=== PATIENT | female | born 2000 | race Caucasian/White ===

== ENCOUNTER 2018-06-12 09:00 | Emergency (ER) | payer BC, OTHER ==
[2018-06-12 09:06] VITALS: RESP 18
[2018-06-12] MEDS ORDERED: SODIUM CHLORIDE 0.9% 1,000 ML IV STA (09:11)
--- NOTE | 2018-06-12 09:33 | ED ---
Abdominal Pain HPI - General Chief Complaint: Abdominal Pain Stated Complaint: POSS DEHYDRATION, RT FLANK PAIN Time Seen by Provider: 06/12/18 09:10 Source: patient, RN notes reviewed Mode of arrival: ambulatory Limitations: no limitations - History of Present Illness Initial Comments: 17-year-old female presents emergency Department with chief complaint of right- sided abdominal pain 2 days. Patient states that it's in her right lower quadrant and occasionally radiates to her back. Patient states nothing makes the pain feel better or worse. She has had some nausea no vomiting no diarrhea no constipation. Patient denies any known fever or chills. Patient seen by his PCP today sent emergency department for evaluation of appendicitis. Patient denies any chance . She's had no prior ovarian issues. - Related Data Allergies Allergy/AdvReac Type Severity Reaction Status Date / Time No Known Allergies Allergy Verified 06/12/18 09:02 Review of Systems ROS Statement: Those systems with pertinent positive or pertinent negative responses have been documented in the HPI. ROS Other: All systems not noted in ROS Statement are negative. Past Medical History Past Medical History: No Reported History History of Any Multi-Drug Resistant Organisms: None Reported Additional Past Surgical History / Comment(s): oral surgery Past Psychological History: No Psychological Hx Reported Smoking Status: Never smoker Past Alcohol Use History: None Reported Past Drug Use History: None Reported General Exam Limitations: no limitations General appearance: alert, in no apparent distress Head exam: Present: atraumatic, normocephalic, normal inspection Neck exam: Present: normal inspection. Absent: tenderness, meningismus, lymphadenopathy Respiratory exam: Present: normal lung sounds bilaterally. Absent: respiratory distress, wheezes, rales, rhonchi, stridor Cardiovascular Exam: Present: regular rate, normal rhythm, normal heart sounds. Absent: systolic murmur, diastolic murmur, rubs, gallop, clicks GI/Abdominal exam: Present: soft, tenderness (Moderate right lower quadrant tenderness), normal bowel sounds. Absent: distended, guarding, rebound, rigid Back exam: Absent: CVA tenderness (R), CVA tenderness (L) Skin exam: Present: warm, dry, intact, normal color. Absent: rash Course Vital Signs 06/12/18 06/12/18 09:02 11:38 Temperature 97.7 F 98.3 F Pulse Rate 86 78 Respiratory 18 18 Rate Blood Pressure 139/87 143/81 O2 Sat by Pulse 100 96 Oximetry Medical Decision Making - Medical Decision Making 17-year-old female presents emergency department for right-sided abdominal pain. Patient's symptoms have been present for [address], lab work urinalysis which is unremarkable other than the left ovarian cysts and left -sided stone in the kidney. Patient will be discharged with close follow-up return parameters were discussed. - Lab Data Result diagrams: 06/12/18 09:35 06/12/18 09:35 Lab Results 06/12/18 06/12/18 06/12/18 Range/Units 09:35 09:35 09:40 WBC 10.4 (4.0-11.0) k/uL RBC 4.35 (3.80-5.40) m/uL Hgb 13.7 (11.4-16.0) gm/dL Hct 38.3 (34.0-46.0) % MCV 88.1 (80.0-100.0) fL MCH 31.5 (25.0-35.0) pg MCHC 35.8 (31.0-37.0) g/dL RDW 12.4 (11.5-15.5) % Plt Count 278 (150-450) k/uL Neutrophils % 71 % Lymphocytes % 22 % Monocytes % 4 % Eosinophils % 2 % Basophils % 0 % Neutrophils # 7.4 (1.3-7.7) k/uL Lymphocytes # 2.3 (1.0-4.8) k/uL Monocytes # 0.4 (0-1.0) k/uL Eosinophils # 0.2 (0-0.7) k/uL Basophils # 0.0 (0-0.2) k/uL Sodium 139 (137-145) mmol/L Potassium 4.2 (3.5-5.1) mmol/L Chloride 105 (98-107) mmol/L Carbon Dioxide 24 (22-30) mmol/L Anion Gap 10 mmol/L BUN 9 (7-17) mg/dL Creatinine 0.79 (0.52-1.04) mg/dL Est GFR (CKD-EPI)AfAm >90 (>60 ml/min/1.73 sqM) Est GFR (CKD-EPI)NonAf >90 (>60 ml/min/1.73 sqM) Glucose 91 (74-99) mg/dL Calcium 9.6 (8.4-10.2) mg/dL Total Bilirubin 0.8 (0.2-1.3) mg/dL AST 15 (14-36) U/L ALT 21 (9-52) U/L Alkaline Phosphatase 90 (38-126) U/L Total Protein 7.5 (6.3-8.2) g/dL Albumin 4.1 (3.5-5.0) g/dL Amylase 50 (30-110) U/L Lipase 34 (23-300) U/L Urine Color Urine Appearance (Clear) Urine pH (5.0-8.0) Ur Specific [place] (1.001-1.035) Urine Protein (Negative) Urine Glucose (UA) (Negative) Urine Ketones (Negative) Urine Blood (Negative) Urine Nitrite (Negative) Urine Bilirubin (Negative) Urine Urobilinogen (<2.0) mg/dL Ur Leukocyte Esterase (Negative) Urine HCG, Qual Not Detected (Not Detectd) 06/12/18 Range/Units 09:40 WBC (4.0-11.0) k/uL RBC (3.80-5.40) m/uL Hgb (11.4-16.0) gm/dL Hct (34.0-46.0) % MCV (80.0-100.0) fL MCH (25.0-35.0) pg MCHC (31.0-37.0) g/dL RDW (11.5-15.5) % Plt Count (150-450) k/uL Neutrophils % % Lymphocytes % % Monocytes % % Eosinophils % % Basophils % % Neutrophils # (1.3-7.7) k/uL Lymphocytes # (1.0-4.8) k/uL Monocytes # (0-1.0) k/uL Eosinophils # (0-0.7) k/uL Basophils # (0-0.2) k/uL Sodium (137-145) mmol/L Potassium (3.5-5.1) mmol/L Chloride (98-107) mmol/L Carbon Dioxide (22-30) mmol/L Anion Gap mmol/L BUN (7-17) mg/dL Creatinine (0.52-1.04) mg/dL Est GFR (CKD-EPI)AfAm (>60 ml/min/1.73 sqM) Est GFR (CKD-EPI)NonAf (>60 ml/min/1.73 sqM) Glucose (74-99) mg/dL Calcium (8.4-10.2) mg/dL Total Bilirubin (0.2-1.3) mg/dL AST (14-36) U/L ALT (9-52) U/L Alkaline Phosphatase (38-126) U/L Total Protein (6.3-8.2) g/dL Albumin (3.5-5.0) g/dL Amylase (30-110) U/L Lipase (23-300) U/L Urine Color Light Yellow Urine Appearance Clear (Clear) Urine pH 6.0 (5.0-8.0) Ur Specific [place] 1.004 (1.001-1.035) Urine Protein Negative (Negative) Urine Glucose (UA) Negative (Negative) Urine Ketones 1+ H (Negative) Urine Blood Negative (Negative) Urine Nitrite Negative (Negative) Urine Bilirubin Negative (Negative) Urine Urobilinogen <2.0 (<2.0) mg/dL Ur Leukocyte Esterase Negative (Negative) Urine HCG, Qual (Not Detectd) Disposition Clinical Impression: Abdominal pain Disposition: HOME SELF-CARE Condition: Stable Instructions: Abdominal Pain (ED) Additional Instructions: Please return to the Emergency Department if symptoms worsen or any other concerns. Is patient prescribed a controlled substance at d/c from ED?: No Referrals: Lawrence Parekh MD [Primary Care Provider] - 1-2 days Time of Disposition: 11:59
[2018-06-12 10:16] LABS: Basophils % (A) 0 %; Eosinophils # (A) 0.2 k/uL (0-0.7); Eosinophils % (A) 2 %; HCT 38.3 % (34.0-46.0); HGB 13.7 gm/dL (11.4-16.0); Lymphocytes # (A) 2.3 k/uL (1.0-4.8); Lymphocytes % (A) 22 %; MCH 31.5 pg (25.0-35.0); MCHC 35.8 g/dL (31.0-37.0); MCV 88.1 fL (80.0-100.0); Mean Platelet Volume 6.9; Monocytes # (A) 0.4 k/uL (0-1.0); Monocytes % (A) 4 %; Neutrophils # (A) 7.4 k/uL (1.3-7.7); Neutrophils % (A) 71 %; Platelet Count 278 k/uL (150-450); RBC 4.35 m/uL (3.80-5.40); RDW 12.4 % (11.5-15.5); WBC 10.4 k/uL (4.0-11.0)
[2018-06-12 10:21] LABS: Appearance,Urine Clear (Clear); Bilirubin,Urine Negative (Negative); Blood,Urine Negative (Negative); Color,Urine Light Yellow; Glucose,Urine (UA) Negative (Negative); Ketones,Urine 1+ (Negative); Leukocyte Esterase,Urine Negative (Negative); Nitrite,Urine Negative (Negative); Protein,Urine Negative (Negative); Specific Gravity,Urine 1.004 (1.001-1.035); Urobilinogen,Urine <2.0 mg/dL (<2.0)
[2018-06-12 10:34] LABS: ALT 21 U/L (9-52); AST 15 U/L (14-36); Albumin 4.1 g/dL (3.5-5.0); Alkaline Phosphatase 90 U/L (38-126); Amylase 50 U/L (30-110); Anion Gap 10 mmol/L; Blood Urea Nitrogen 9 mg/dL (7-17); Calcium 9.6 mg/dL (8.4-10.2); Carbon Dioxide 24 mmol/L (22-30); Chloride 105 mmol/L (98-107); Glucose 91 mg/dL (74-99); Lipase 34 U/L (23-300); Potassium 4.2 mmol/L (3.5-5.1); Sodium 139 mmol/L (137-145); Total Bilirubin 0.8 mg/dL (0.2-1.3); Total Protein 7.5 g/dL (6.3-8.2)
[2018-06-12 11:40] VITALS: BP 143/81; PULSE 78; TEMP 98.3
--- NOTE | 2018-06-12 11:52 | CT ---
EXAMINATION TYPE: CT abdomen pelvis w con DATE OF EXAM: 06/12/2018 HISTORY: Right flank pain CT DLP: 997.9mGycm Automated Exposure Control for Dose Reduction was Utilized. CONTRAST: CT scan of the abdomen and pelvis is performed with IV Contrast, patient injected with 100 mL of Isov ue 300. COMPARISON: 10/28/2011 FINDINGS: LUNG BASES: No significant abnormality is appreciated. LIVER/GB: Wedge-shaped area of hypoattenuation along the fissure for the falciform ligament most comm only relates to focal fatty infiltration. Remainder of the liver enhances homogeneously. No cholelith iasis. PANCREAS: No significant abnormality is seen. SPLEEN: No significant abnormality is seen. ADRENALS: No significant abnormality is seen. KIDNEYS: There is a punctate nonobstructing left lower pole 1 to 2 mm renal calculus seen on coronal image 56. Kidneys enhance and excrete symmetrically. No hydronephrosis. BOWEL: Appendix is unremarkable along dating towards midline on series 201 image 54 overlying the rig ht so as and right ureter. No periappendiceal fat stranding changes are seen. There is a mild amount retained colonic stool. Clustered nonenlarged small bowel loops are seen within the left upper quadra nt. UTERUS/ADNEXA: Left ovarian cyst measures 3.5 cm and is compatible with simple fluid attenuation. LYMPH NODES: No greater than 1cm abdominal or pelvic lymph nodes are appreciated. OSSEOUS STRUCTURES: Minimal sacroiliac joint sclerosis is slightly asymmetric (right greater than lef t). This is similar to the prior 2012. IMPRESSION: 1. No significant acute finding is seen to account for patient's clinical symptoms. CT evidence of ac [place] appendicitis, pyelonephritis, hydronephrosis, or bowel obstruction. 2. 3.5 cm left ovarian cyst. 3. Nonobstructing 1 to 2 mm left lower pole renal calculus. 4. Minimal asymmetric sacroiliac joint sclerosis similar to 2012. 5. Probable focal fatty infiltration along the fissure for the falciform ligament.
== END 2018-06-12 12:05 | disposition home or self-care (01) ==
LOC: EC 09:00
DX: R10.31 Right lower quadrant pain (principal); N83.202 Unspecified ovarian cyst, left side; N20.0 Calculus of kidney; M54.5 Low back pain; R11.0 Nausea
CPT/HCPCS: 36415; 80053; 82150; 83690; 85025; 81003; 81025; 74177; 99284; 96360; Q9967

== ENCOUNTER 2019-03-03 03:18 | Emergency (ER) | payer BC ==
[2019-03-03 03:22] VITALS: RESP 18
[2019-03-03] MEDS ORDERED: SODIUM CHLORIDE 0.9% 1,000 ML IV STA (03:37)
[2019-03-03 04:02] LABS: Basophils % (A) 0 %; Eosinophils # (A) 0.2 k/uL (0-0.7); Eosinophils % (A) 2 %; HCT 37.4 % (34.0-46.0); HGB 12.3 gm/dL (11.4-16.0); Lymphocytes # (A) 3.8 k/uL (1.0-4.8); Lymphocytes % (A) 28 %; MCH 28.8 pg (25.0-35.0); MCHC 32.9 g/dL (31.0-37.0); MCV 87.6 fL (80.0-100.0); Mean Platelet Volume 7.3; Monocytes # (A) 0.5 k/uL (0-1.0); Monocytes % (A) 3 %; Neutrophils # (A) 9.1 k/uL (1.3-7.7); Neutrophils % (A) 66 %; Platelet Count 448 k/uL (150-450); RBC 4.27 m/uL (3.80-5.40); RDW 12.7 % (11.5-15.5); WBC 13.8 k/uL (4.0-11.0)
[2019-03-03 04:13] LABS: ALT 13 U/L (9-52); AST 14 U/L (14-36); African American GFR (CKD) >90 (>60 ml/min/1.73 sqM); Alkaline Phosphatase 105 U/L (38-126); Anion Gap 9 mmol/L; Blood Urea Nitrogen 15 mg/dL (7-17); Calcium 9.5 mg/dL (8.4-10.2); Carbon Dioxide 24 mmol/L (22-30); Chloride 106 mmol/L (98-107); Glucose 126 mg/dL (74-99); Potassium 3.8 mmol/L (3.5-5.1); Sodium 139 mmol/L (137-145); Total Bilirubin 0.3 mg/dL (0.2-1.3); Total Protein 7.4 g/dL (6.3-8.2)
--- NOTE | 2019-03-03 04:14 | ED ---
Abdominal Pain HPI - General Chief Complaint: Abdominal Pain Stated Complaint: Back Pain Time Seen by Provider: 03/03/19 03:37 Source: patient Mode of arrival: ambulatory Limitations: no limitations - History of Present Illness Initial Comments: Sahra is a pleasant 18-year-old female with a history of kidney stone one time in the past and presents the ER today with complaint of left-sided flank pain radiating into her left lower quadrant, urinary frequency, dysuria and urinary hesitancy. Patient reports that she began having flank pain yesterday throughout the day, she reports that throughout the night she is developed constant urge to urinate constant feeling that she needs to urinate but is only able to urinate a little amount with no relief of this sensation. Patient reports she's not expresses in the past with kidney stones. Denies any concern for social transmitted infection or . - Related Data Home Medications Medication Instructions Recorded Confirmed Ibuprofen [Motrin Ib] 600 mg PO Q6H PRN 06/12/18 06/12/18 Norgestimate-Ethinyl Estradiol 1 tab PO DAILY 06/12/18 06/12/18 [Sprintec 28 Day Tablet] Previous Rx's Medication Instructions Recorded Cephalexin [Keflex] 500 mg PO Q6HR 3 Days #12 cap 03/03/19 Phenazopyridine HCl [Pyridium] 100 mg PO TID #9 tab 03/03/19 Tamsulosin [Flomax] 0.4 mg PO DAILY #7 cap 03/03/19 Allergies Allergy/AdvReac Type Severity Reaction Status Date / Time No Known Allergies Allergy Verified 06/12/18 12:04 Review of Systems ROS Statement: Those systems with pertinent positive or pertinent negative responses have been documented in the HPI. ROS Other: All systems not noted in ROS Statement are negative. Past Medical History Past Medical History: No Reported History History of Any Multi-Drug Resistant Organisms: None Reported Additional Past Surgical History / Comment(s): oral surgery Past Psychological History: No Psychological Hx Reported Smoking Status: Never smoker Past Alcohol Use History: None Reported Past Drug Use History: None Reported General Exam - General Exam Comments Initial Comments: Physical Exam GENERAL: Patient is well-developed and well-nourished. Patient is nontoxic and well- hydrated and is in no distress. HENT: Normocephalic, Atraumatic. EYES: PERRL, EOMI PULMONARY: Unlabored respirations. No audible rales rhonchi or wheezing was noted. CARDIOVASCULAR: There is a regular rate and rhythm without any murmurs gallops or rubs. ABDOMEN: Pain to percussion of left flank SKIN: Skin is clear with no lesions or rashes and otherwise unremarkable. : Deferred NEUROLOGIC: Patient is alert and oriented x3. Moving all extremities spontaneously MUSCULOSKELETAL: Normal extremities with adequate strength and full range of motion. No lower extremity swelling or edema. No calf tenderness. PSYCHIATRIC: Normal psychiatric evaluation. Limitations: no limitations Course Vital Signs 03/03/19 03/03/19 03:19 06:17 Temperature 98.8 F 98 F Pulse Rate 102 H 68 Respiratory 18 18 Rate Blood Pressure 116/77 139/79 O2 Sat by Pulse 100 100 Oximetry Medical Decision Making - Medical Decision Making The patient was seen and evaluated, history is obtained from patient and parents Labs ordered Previous computed tomography scan was reviewed patient does have a history of kidney stones, risks and benefits of repeat CT imaging were discussed with like to at this time hold on imaging to reduce risk of radiation exposure Labs are unremarkable Urinalysis with gross hematuria, there are a few white blood cells and leukoesterase, culture will be obtained Rocephin will be given Patient was treated with Toradol and morphine here in the emergency department. She was also given Pyridium. Upon reevaluation patient was sleeping comfortably and will be discharged home with a Tylenol 3 starter pack advised to drink plenty of fluids, was prescribed Pyridium, Flomax and Keflex. All questions pertaining care were answered to the best of my ability return parameters were discussed patient was discharged home in stable condition. Patient's parents will be driving her, she did receive narcotics and is quite sleepy. - Lab Data Result diagrams: 03/03/19 03:52 03/03/19 03:52 Lab Results 03/03/19 03/03/19 03/03/19 Range/Units 03:52 03:52 04:08 WBC 13.8 H (4.0-11.0) k/uL RBC 4.27 (3.80-5.40) m/uL Hgb 12.3 (11.4-16.0) gm/dL Hct 37.4 (34.0-46.0) % MCV 87.6 (80.0-100.0) fL MCH 28.8 (25.0-35.0) pg MCHC 32.9 (31.0-37.0) g/dL RDW 12.7 (11.5-15.5) % Plt Count 448 (150-450) k/uL Neutrophils % 66 % Lymphocytes % 28 % Monocytes % 3 % Eosinophils % 2 % Basophils % 0 % Neutrophils # 9.1 H (1.3-7.7) k/uL Lymphocytes # 3.8 (1.0-4.8) k/uL Monocytes # 0.5 (0-1.0) k/uL Eosinophils # 0.2 (0-0.7) k/uL Basophils # 0.0 (0-0.2) k/uL Sodium 139 (137-145) mmol/L Potassium 3.8 (3.5-5.1) mmol/L Chloride 106 (98-107) mmol/L Carbon Dioxide 24 (22-30) mmol/L Anion Gap 9 mmol/L BUN 15 (7-17) mg/dL Creatinine 0.85 (0.52-1.04) mg/dL Est GFR (CKD-EPI)AfAm >90 (>60 ml/min/1.73 sqM) Est GFR (CKD-EPI)NonAf >90 (>60 ml/min/1.73 sqM) Glucose 126 H (74-99) mg/dL Calcium 9.5 (8.4-10.2) mg/dL Total Bilirubin 0.3 (0.2-1.3) mg/dL AST 14 (14-36) U/L ALT 13 (9-52) U/L Alkaline Phosphatase 105 (38-126) U/L Total Protein 7.4 (6.3-8.2) g/dL Albumin 4.0 (3.5-5.0) g/dL Lipase 39 (23-300) U/L Urine Color Urine Appearance (Clear) Urine pH (5.0-8.0) Ur Specific [place] (1.001-1.035) Urine Protein (Negative) Urine Glucose (UA) (Negative) Urine Ketones (Negative) Urine Blood (Negative) Urine Nitrite (Negative) Urine Bilirubin (Negative) Urine Urobilinogen (<2.0) mg/dL Ur Leukocyte Esterase (Negative) Urine RBC (0-5) /hpf Urine WBC (0-5) /hpf Ur Squamous Epith Cells (0-4) /hpf Urine Bacteria (None) /hpf Urine Mucus (None) /hpf Urine HCG, Qual Not Detected (Not Detectd) 03/03/19 Range/Units 04:08 WBC (4.0-11.0) k/uL RBC (3.80-5.40) m/uL Hgb (11.4-16.0) gm/dL Hct (34.0-46.0) % MCV (80.0-100.0) fL MCH (25.0-35.0) pg MCHC (31.0-37.0) g/dL RDW (11.5-15.5) % Plt Count (150-450) k/uL Neutrophils % % Lymphocytes % % Monocytes % % Eosinophils % % Basophils % % Neutrophils # (1.3-7.7) k/uL Lymphocytes # (1.0-4.8) k/uL Monocytes # (0-1.0) k/uL Eosinophils # (0-0.7) k/uL Basophils # (0-0.2) k/uL Sodium (137-145) mmol/L Potassium (3.5-5.1) mmol/L Chloride (98-107) mmol/L Carbon Dioxide (22-30) mmol/L Anion Gap mmol/L BUN (7-17) mg/dL Creatinine (0.52-1.04) mg/dL Est GFR (CKD-EPI)AfAm (>60 ml/min/1.73 sqM) Est GFR (CKD-EPI)NonAf (>60 ml/min/1.73 sqM) Glucose (74-99) mg/dL Calcium (8.4-10.2) mg/dL Total Bilirubin (0.2-1.3) mg/dL AST (14-36) U/L ALT (9-52) U/L Alkaline Phosphatase (38-126) U/L Total Protein (6.3-8.2) g/dL Albumin (3.5-5.0) g/dL Lipase (23-300) U/L Urine Color Yellow Urine Appearance Cloudy H (Clear) Urine pH 5.5 (5.0-8.0) Ur Specific [place] 1.027 (1.001-1.035) Urine Protein Trace H (Negative) Urine Glucose (UA) Negative (Negative) Urine Ketones Negative (Negative) Urine Blood Moderate H (Negative) Urine Nitrite Negative (Negative) Urine Bilirubin Negative (Negative) Urine Urobilinogen <2.0 (<2.0) mg/dL Ur Leukocyte Esterase Moderate H (Negative) Urine RBC 49 H (0-5) /hpf Urine WBC 13 H (0-5) /hpf Ur Squamous Epith Cells 4 (0-4) /hpf Urine Bacteria Many H (None) /hpf Urine Mucus Few H (None) /hpf Urine HCG, Qual (Not Detectd) Disposition Clinical Impression: Flank pain Disposition: HOME SELF-CARE Condition: Stable Instructions (If sedation given, give patient instructions): Kidney Stones (ED) Prescriptions: Tamsulosin [Flomax] 0.4 mg PO DAILY #7 cap Cephalexin [Keflex] 500 mg PO Q6HR 3 Days #12 cap Phenazopyridine HCl [Pyridium] 100 mg PO TID #9 tab Is patient prescribed a controlled substance at d/c from ED?: No Referrals: Lawrence Parekh MD [Primary Care Provider] - 1-2 days
[2019-03-03] MEDS ORDERED: KETOROLAC 30 MG/ML 1 ML VIAL IVP ONE (04:22)
[2019-03-03] MEDS ORDERED: ONDANSETRON 4 MG/2 ML VIAL IVP STA (04:22)
[2019-03-03 04:29] LABS: Appearance,Urine Cloudy (Clear); Bacteria,Urine Many /hpf; Bilirubin,Urine Negative (Negative); Blood,Urine Moderate (Negative); Color,Urine Yellow; Glucose,Urine (UA) Negative (Negative); Ketones,Urine Negative (Negative); Leukocyte Esterase,Urine Moderate (Negative); Mucus,Urine Few /hpf; Nitrite,Urine Negative (Negative); PH, Urine 5.5 (5.0-8.0); Protein,Urine Trace (Negative); RBC,Urine 49 /hpf (0-5); Specific Gravity,Urine 1.027 (1.001-1.035); Squamous Epithelial Cell,Urine 4 /hpf (0-4); Urobilinogen,Urine <2.0 mg/dL (<2.0); WBC,Urine 13 /hpf (0-5)
[2019-03-03] MEDS ORDERED: cefTRIAXone IN SWFI 1,000 MG/10 ML SYRINGE IVP STA (04:39)
[2019-03-03] MEDS ORDERED: ACET/COD 300 MG/30 MG STARTER PACK 6 TAB BTL PO STA (04:41)
[2019-03-03] MEDS ORDERED: PHENAZOPYRIDINE 100 MG TAB PO STA (04:41)
[2019-03-03] MEDS ORDERED: MORPHINE SULFATE 4 MG/ML SYRINGE IVP STA (05:24)
[2019-03-03 06:18] VITALS: BP 139/79; PULSE 68; TEMP 98
== END 2019-03-03 06:20 | disposition home or self-care (01) ==
LOC: EC 03:18
DX: R10.32 Left lower quadrant pain (principal); M54.9 Dorsalgia, unspecified; R30.0 Dysuria; R39.11 Hesitancy of micturition; R35.0 Frequency of micturition; R39.15 Urgency of urination; Z79.3 Long term (current) use of hormonal contraceptives; Z87.442 Personal history of urinary calculi
CPT/HCPCS: 51798; 36415; 80053; 83690; 85025; 81001; 81025; 99285; 96374; 96375 ×3; 96361 ×2; J2270; J2405; J0696; J1885

== ENCOUNTER 2019-04-09 19:33 | Observation (INO) | payer BC ==
[2019-04-09] MEDS: LACTATED RINGERS 1,000 ML IV ONE (11:29)
[2019-04-09] MEDS ORDERED: KETOROLAC 30 MG/ML 1 ML VIAL IVP STA (20:01)
[2019-04-09] MEDS ORDERED: HYDROmorphone 0.5 MG/0.5 ML SYRINGE IVP STA ×2 (20:03→21:17)
[2019-04-09] MEDS ORDERED: HYDROcodone/APAP 5-325MG 1 EACH TAB PO STA (21:17)
--- NOTE | 2019-04-09 21:27 | ED ---
Abdominal Pain HPI - General Chief Complaint: Abdominal Pain Stated Complaint: Abd pain Time Seen by Provider: 04/09/19 19:45 Source: patient, family Mode of arrival: ambulatory Limitations: no limitations - History of Present Illness Initial Comments: 18-year-old female patient presents to the emergency department today for evaluation of right pelvic pain. Patient states she's had pain to the area since . She states that the pain has been quite severe. She describes as a sharp stabbing pain. Denies any radiation of the pain through to her back. Patient denies any abnormal vaginal bleeding or discharge. Denies any history of similar pain. Patient was seen and evaluated at [facility] in [place], [place] and plan was for admission and possible laparoscopic procedure to remove the cyst. Patient is from the area here and family wanted her evaluated at a local hospital so she was transferred here to this emergency department. She denies any fever or chills. Denies any hematuria, dysuria, urinary frequency, urinary urgency. Denies any conference structure transmitted infections. Patient denies any recent rash, shortness breath, chest pain, nausea, vomiting, diarrhea, constipation, back pain, numbness, tingling, dizziness, weakness, headache, visual changes, or any other complaints. No history of . She currently takes oral contraceptive. - Related Data Home Medications Medication Instructions Recorded Confirmed Ibuprofen [Motrin Ib] 600 mg PO Q6H PRN 06/12/18 04/09/19 Norgestimate-Ethinyl Estradiol 1 tab PO DAILY 06/12/18 04/09/19 [Sprintec 28 Day Tablet] Allergies Allergy/AdvReac Type Severity Reaction Status Date / Time No Known Allergies Allergy Verified 04/09/19 22:32 Review of Systems ROS Statement: Those systems with pertinent positive or pertinent negative responses have been documented in the HPI. ROS Other: All systems not noted in ROS Statement are negative. Past Medical History Past Medical History: No Reported History History of Any Multi-Drug Resistant Organisms: None Reported Additional Past Surgical History / Comment(s): oral surgery Past Psychological History: No Psychological Hx Reported Smoking Status: Never smoker Past Alcohol Use History: None Reported Past Drug Use History: None Reported General Exam Limitations: no limitations General appearance: alert, in no apparent distress, other (This is a well- developed, well-nourished adult female patient in no acute distress. Vital signs upon presentation are temperature 97.8F, pulse 82, respirations 18, blood pressure 131/87, pulse ox 100% on room air.) Eye exam: Present: normal appearance, PERRL, EOMI. Absent: scleral icterus, conjunctival injection, periorbital swelling ENT exam: Present: normal exam, normal oropharynx, mucous membranes moist Respiratory exam: Present: normal lung sounds bilaterally. Absent: respiratory distress, wheezes, rales, rhonchi, stridor Cardiovascular Exam: Present: regular rate, normal rhythm, normal heart sounds. Absent: systolic murmur, diastolic murmur, rubs, gallop, clicks GI/Abdominal exam: Present: soft, tenderness (Right pelvic tenderness), normal bowel sounds. Absent: distended, guarding, rebound, rigid Neurological exam: Present: alert, oriented X3, CN II-XII intact Psychiatric exam: Present: normal affect, normal mood Skin exam: Present: warm, dry, intact, normal color. Absent: rash Course Vital Signs 04/09/19 04/09/19 19:35 21:26 Temperature 97.8 F 98.1 F Pulse Rate 82 62 Respiratory 18 16 Rate Blood Pressure 131/87 136/74 O2 Sat by Pulse 100 98 Oximetry Medical Decision Making - Medical Decision Making 18-year-old female patient presented to the emergency department for evaluation of right lower pelvic pain. Patient was transferred from [facility] in [place], [place] per family request. She did have labs performed at that facility which showed leukocytosis, but were otherwise unremarkable. Ultrasound showed 6cm x6cm x4 cm cystic lesion in the vesicouterine pouch. MRI was performed and apparently reviewed with the radiologist and verbal report was that there was an ovarian cyst without communication with the bladder. I did attempt multiple times to obtain the MRI report however staff state that the radiologist has gone home and will not be available until the morning. Patient was given several doses of pain medication here without much relief of symptoms. I did discuss the case with on-call physician Dr. Corea who was in to evaluate the patient. Given concern for ovarian cyst and possible torsion he will take patient to OR for diagnostic laparoscopy with possible cystectomy, cystotomy, or oophorectomy. He did discuss this with the patient and her parent. They are agreeable with this plan. - Radiology Data Radiology results: report reviewed Ultrasound report from [facility] was reviewed and shows a 6 cm cystic lesion in the vesicle uterine pouch which may represent large urinary bladder diverticulum. There are no prior to be available for comparison. MRI of the pelvis is recommended. MRI was completed but report not available. Disposition Clinical Impression: Ovarian cyst Disposition: ADMITTED IP TO THIS HOSP Condition: Serious Referrals: Lawrence Parekh MD [Primary Care Provider] - 1-2 days Decision to Admit Reason: Admit from EC Decision Date: 04/09/19 Decision Time: 22:46
--- NOTE | 2019-04-09 22:37 | P.HPOB ---
History of Present Illness H&P Date: 04/09/19 Chief Complaint: Pelvic pain: Pelvic cyst/mass Sahra is a 18-year-old G0 who began having pain on . She relates that is been severe for the last 2 days and that he got to the point where her father took her to the emergency room in [place] this morning at approximately 9 AM. They were camping up there. She was seen in the emergency room at [place] and an ultrasound and MRI were done showing some type of cystic mass anterior to the bladder in the pelvis. Ultrasound images show what appears to be normal ovaries and no cystic lesion on done however. It is difficult to say where this cystic lesion is emanating from although ovarian cyst is still the most likely source. While she was in [place] at approximately 5 PM they discussed taking her to surgery for diagnostic laparoscopy over their concern over a torsion. At that point her mother called the emergency room here and discussed transfer. The emergency room here accepted the transfer as they live closer to [place] I'm it is not clear whether or not it was explained to them that delay in venecia atment further could result in her losing her ovary due to the potential torsion. This certainly is a distinct possibility as now another 5 or 6 hours as past since the original surgery was planned. I did explain to them that this is a possibility and that I was unclear as to why when she was scheduled for surgery there they opted to come here delaying her treatment by such a wide margin. She does take oral contraceptive pills for her control choice. She is scheduled now for a diagnostic laparoscopy here possible cyst ectomy versus cystotomy versus oophorectomy. Should she need an oophorectomy chemin the having a laparotomy depending on how large or difficult the cyst is to excise. It's also possible based on ultrasound that this is not an ovarian for gynecologic cyst all Kyra having surgery only to have to go back to surgery with another surgeon at a later time. Past medical history renal lithiasis Past surgical history none ALLERGIES none Social history none Family history noncontributory Medications control pills On physical exam vital signs are currently stable and she is afebrile. She's been receiving multiple doses of narcotic pain relievers with only minimal result or relief of symptoms. Heart regular, lungs clear, extremities without pain. Abdomen soft there is significant tenderness to the right lower quadrant left lower quadrant pain and no rebound or rigidity. Assessment pelvic mass and abdominal/pelvic pain Diagnostic laparoscopy Past Medical History Past Medical History: No Reported History History of Any Multi-Drug Resistant Organisms: None Reported Additional Past Surgical History / Comment(s): oral surgery Past Psychological History: No Psychological Hx Reported Smoking Status: Never smoker Past Alcohol Use History: None Reported Past Drug Use History: None Reported Medications and Allergies Home Medications Medication Instructions Recorded Confirmed Type Ibuprofen [Motrin Ib] 600 mg PO Q6H PRN 06/12/18 06/12/18 History Norgestimate-Ethinyl Estradiol 1 tab PO DAILY 06/12/18 06/12/18 History [Sprintec 28 Day Tablet] Cephalexin [Keflex] 500 mg PO Q6HR 3 Days #12 cap 03/03/19 Rx Phenazopyridine HCl [Pyridium] 100 mg PO TID #9 tab 03/03/19 Rx Tamsulosin [Flomax] 0.4 mg PO DAILY #7 cap 03/03/19 Rx Allergies Allergy/AdvReac Type Severity Reaction Status Date / Time No Known Allergies Allergy Verified 04/09/19 19:38 Exam Osteopathic Statement: *. No significant issues noted on an osteopathic structural exam other than those noted in the History and Physical/Consult. Vital Signs Temp Pulse Resp BP Pulse Ox 04/09/19 21:26 98.1 F 62 16 136/74 98 04/09/19 19:35 97.8 F 82 18 131/87 100 Intake and Output 04/09/19 04/09/19 04/09/19 06:59 14:59 22:59 Other: Voiding Method Toilet Weight 81.647 kg
[2019-04-09] MEDS ORDERED: ROCURONIUM BROMIDE 10 MG/ML 10 ML VIAL IV ONE (23:27)
[2019-04-09] MEDS ORDERED: ONDANSETRON 4 MG/2 ML VIAL ONE (23:27)
[2019-04-09] MEDS ORDERED: DEXAMETHASONE SOD PHOS (MDV) 100 MG/10 ML VIAL ONE (23:27)
[2019-04-09] MEDS ORDERED: MIDAZOLAM 2 MG/2 ML VIAL ONE (23:27)
[2019-04-09] MEDS ORDERED: GLYCOPYRROLATE 0.2 MG/ML 2 ML VIAL ONE (23:27)
[2019-04-09] MEDS ORDERED: PROPOFOL 10 MG/ML 20 ML VIAL IV ONE (23:27)
[2019-04-09] MEDS ORDERED: NEOSTIGMINE 1 MG/ML 10 ML VIAL ONE (23:27)
[2019-04-09] MEDS ORDERED: SUCCINYLCHOLINE CHLORIDE 100 MG/5 ML SYR IV ONE (23:27)
[2019-04-09] MEDS ORDERED: fentaNYL (PF) 50 MCG/ML 2 ML AMP ONE (23:27)
[2019-04-09] MEDS ORDERED: LIDOCAINE 1% INJ 10MG/ML (20 ML MDV) ONE (23:27)
[2019-04-10] MEDS ORDERED: BUPIVACAINE (PF) 0.25% 30 ML VIAL SQ ONE ×2 (00:01→00:52)
[2019-04-10] MEDS ORDERED: KETOROLAC 30 MG/ML 1 ML VIAL IVP PRN (01:06)
[2019-04-10] MEDS ORDERED: SIMETHICONE 80 MG CHEWABLE PO PRN (01:06)
[2019-04-10] MEDS ORDERED: ONDANSETRON 4 MG/2 ML VIAL IVP PRN (01:06)
[2019-04-10] MEDS ORDERED: NALOXONE 0.4 MG/ML 1 ML VIAL IV PRN (01:08)
[2019-04-10] MEDS ORDERED: HYDROmorphone PCA 10 MG/50 ML BAG IV PRN (01:08)
[2019-04-10] MEDS: HYDROmorphone 1 MG/ML 1 ML SYRINGE IVP ONE ×2 (01:10→01:20)
--- NOTE | 2019-04-10 01:18 | P.OP ---
Date of Procedure: 04/10/19 Preoperative Diagnosis: Pelvic mass and pain Postoperative Diagnosis: Same with torsed hydrosalpinx grossly necrotic Procedure(s) Performed: Diagnostic laparoscopy with right salpingectomy Anesthesia: GAUDENCIO Surgeon: Gray Corea Estimated Blood Loss (ml): 10 IV fluids (ml): 500 Urine output (ml): 10 Pathology: other (Right fallopian tube) Condition: stable Disposition: floor Operative Findings: Right sloping tube torsed 4 untorsed but did not have return of blood flow. Very firm and appeared nonfunctional. Unclear etiology. Right ovary, left ovary and fallopian tube all normal no other scarring or abnormalities are noted throughout the pelvis there was scant amount of free fluid in the pelvis it was suctioned out. Descending colon and liver both were unremarkable. No signs of perihepatic adhesions or other signs or of PID. We'll await tissue pathology. Description of Procedure: Patient was taken to the operating room where a general anesthetic was found be adequate. She was prepped and draped in normal sterile fashion and placed in the dorsal lithotomy position. Initially a speculum was inserted into the vagina and into lip of cervix identified and grasped with a single tooth t enaculum. Cervix then dilated and a manipulator was inserted without difficulty. Red rubber catheter was used to drain the bladder of urine and then gloves were changed and attention was turned to abdominal portion procedure following removal of other instruments from vagina. Approximately 2 mL of quarter percent Marcaine was injected periumbilically through this injected anesthetic a 5 mm skin incision was made and through this incision under direct visualization with an optical trocar and sleeve the camera was inserted. Once camera was placed patient placed in steep Trendelenburg position immediately we can see a dark purple mass in the pelvis above the uterus sitting essentially on top of the bladder. Also visualize a torsion of the tissue and a normal ovary sitting adjacent to it the torsion was noted to be 4 time she was unwound and allowed to see if blood flow return however no blood flow did return therefore a 5 mm [place] LigaSure was placed and at the base of the attachment where the Storz fallopian tube was it was cauterized and excised. Once excision was done was placed in a gallbladder bag and brought to the skin surface. We did extend the skin incisions that I was able to reach down into the bag while pulling up on the bag we were trying to decrease the size of the cystic mass which we knew was fluid-filled but was very hard and very difficult to wilson. Ultimately we were able appears with a Kocur and the fluid was suctioned out and the remainder of the mass was removed from the abdomen without difficulty. Once this was accomplished a Alcon Espinosa fascial closure device was placed and the fascial opening through the 1012 port was closed without difficulty. Inspection of the remainder of the abdomen and pelvis was performed no areas of concern were noted. The left fallopian tube and ovary appeared normal and other than scant fluid in the posterior cul-de-sac there were no other gross findings. We'll need to verify that cultures were done at [facility] and if not we'll likely need to repeat cultures to verify no risk for STD. Once pelvis and abdomen were evaluated all the rest of the incidents removed and gas was allowed to expel from the abdomen with 5 deep breaths been provided during this process. Skin incisions were all then closed subcuticularly and the remaining 8 mL of quarter percent Marcaine was injected around these incisions. The middle ear was then removed from vagina sponge, lap, needle counts were all correct 2. Patient was then taken to the recovery room in stable and satisfactory condition. It is again noted that the camera apparently did not was not working and there are no pictures that could be developed from the surgery. There is also noted that the majority of the case was trying to get the cystic fallopian tube out of the abdomen as it was extremely difficult wilson and was clearly much larger than my port opening but I do not want extended if at all possible so we took our time and slowly made progress in removing until we're finally able to wilson the fallopian tube
[2019-04-10 02:02] VITALS: BMI 25.1
[2019-04-10] MEDS ORDERED: SENNOSIDES-DOCUSATE SODIUM 1 EACH TAB PO SCH (09:00)
[2019-04-10] MEDS ORDERED: HYDROcodone/APAP 7.5-325MG 1 EACH TAB PO PRN (10:32)
--- NOTE | 2019-04-10 10:35 | P.DS ---
Providers Date of admission: 04/09/19 22:30 Expected date of discharge: 04/10/19 Attending physician: Gray Corea Primary care physician: Lawrence [facility] Course: Sahra is seen and evaluated this morning essentially postop day 0. She is beginning to ambulate and will hopefully be voiding without difficulty later this morning. Her vital signs are all stable and she is afebrile. Heart regular, lungs clear, extremity without pain. Abdomen soft incisions are intact she has bowel sounds. She does have pain particularly. Left incision site with that was extended but no other findings are dramatically noted. We'll advance her diet this morning for lunch and if she tolerates that and she is feeling well discharge her to home assuming she is tolerating [place] and Motrin. I did discuss with she and her mother discharge instructions the did include but were not limited to take it easy pelvic rest limited stairs no driving while on narcotics and we also discussed in particular because of the extension of the incision even though we did close the fascial layer below it that there could be an increased risk for hernia and that if she was to have any significant pain or swelling at that site she did proceed immediately to the emergency room or notify our office. All the questions were answered for her prior to her discharge and she is stable for discharge later today. Patient Condition at Discharge: Good Plan - Discharge Summary New Discharge Prescriptions: New Ibuprofen [Motrin] 600 mg PO Q6HR PRN #30 tab PRN Reason: Pain HYDROcodone/APAP 7.5-325MG [[place] 7.5-325] 1 tab PO Q4H PRN 3 Days #18 tab PRN Reason: Pain No Action Norgestimate-Ethinyl Estradiol [Sprintec 28 Day Tablet] 1 tab PO DAILY Ibuprofen [Motrin Ib] 600 mg PO Q6H PRN PRN Reason: Pain Discharge Medication List Ibuprofen [Motrin Ib] 600 mg PO Q6H PRN 06/12/18 [History] Norgestimate-Ethinyl Estradiol [Sprintec 28 Day Tablet] 1 tab PO DAILY 06/12/18 [History] HYDROcodone/APAP 7.5-325MG [[place] 7.5-325] 1 tab PO Q4H PRN 3 Days #18 tab 04/10/19 [Rx] Ibuprofen [Motrin] 600 mg PO Q6HR PRN #30 tab 04/10/19 [Rx] Follow up Appointment(s)/Referral(s): Lawrence Parekh MD [Primary Care Provider] - 1-2 days Gray Corea DO [Doctor of Osteopathic Medicine] - 1 Week Activity/Diet/Wound Care/Special Instructions: No heavy lifting, limit stairs and driving, and pelvic rest. If any high temperatures, heavy bleeding, or severe pain call my office Discharge Disposition: HOME SELF-CARE
[2019-04-10 15:58] VITALS: BP 127/65; PULSE 59; RESP 16; TEMP 97
[2019-04-10] MEDS: LACTATED RINGERS 1,000 ML IV ONE (17:01)
[2019-04-10] MEDS ORDERED: IBUPROFEN 600 MG TAB PO PRN (19:37)
[2019-04-11 12:48] LABS: C. trachomatis,PCR Negative (Neg,Equiv); Chlamydia trachomatis Source Urine; N. gonorrhoeae,PCR Negative (Neg,Equiv); Neisseria Source Urine
== END 2019-04-10 20:35 | disposition home or self-care (01) ==
LOC: EC 19:33 → 4FBP 22:30
PROVIDERS: ADMIT Obstetrics & Gynecology; ATTEND Obstetrics & Gynecology
DX: N83.521 Torsion of right fallopian tube (principal); N70.11 Chronic salpingitis; Z79.3 Long term (current) use of hormonal contraceptives; Z87.442 Personal history of urinary calculi
CPT/HCPCS: 58661; 96376; 96374; 96375; 99284; 88305; 81025; 87491; 87591; G0378 ×2; J2250; J2710; J2405 ×2; J2001; J3010; J1885 ×2; J1170 ×3; J1100; J0330; J2704

== ENCOUNTER 2019-06-23 17:07 | Inpatient (IN) | payer BC ==
[2019-06-23] MEDS ORDERED: SODIUM CHLORIDE 0.9% 1,000 ML IV STA ×2 (17:24)
--- NOTE | 2019-06-23 17:35 | ED ---
Recheck HPI - General Chief Complaint: Skin/Abscess/Foreign Body Stated Complaint: Lump in neck Time Seen by Provider: 06/23/19 17:22 Source: patient, RN notes reviewed, old records reviewed Mode of arrival: ambulatory Limitations: no limitations - History of Present Illness Initial Comments: This is a 18-year-old female presented for evaluation regards to evaluation regarding found supraclavicular and [place] lymph node left side of chest. Patient having no symptoms no pain no chest pain no shortness of breath. No significant history of same. Patient has been feeling fine is no significant complaints. No chest pain no shortness of breath MD Complaint: other (Abnormal findings on physical exam) -: unknown Returns Today for: other (Sent here for evaluation of abnormal x-ray showing mass) Symptoms Since Prior Visit: no new symptoms Associated Symptoms: none - Related Data Home Medications Medication Instructions Recorded Confirmed Ibuprofen [Motrin Ib] 600 mg PO Q6H PRN 06/12/18 04/10/19 Norgestimate-Ethinyl Estradiol 1 tab PO DAILY 06/12/18 04/10/19 [Sprintec 28 Day Tablet] Previous Rx's Medication Instructions Recorded HYDROcodone/APAP 7.5-325MG [[place] 1 tab PO Q4H PRN 3 Days #18 tab 04/10/19 7.5-325] Ibuprofen [Motrin] 600 mg PO Q6HR PRN #30 tab 04/10/19 Allergies Allergy/AdvReac Type Severity Reaction Status Date / Time No Known Allergies Allergy Verified 06/23/19 17:12 Review of Systems ROS Statement: Those systems with pertinent positive or pertinent negative responses have been documented in the HPI. ROS Other: All systems not noted in ROS Statement are negative. Past Medical History Past Medical History: No Reported History History of Any Multi-Drug Resistant Organisms: None Reported Past Surgical History: Tubal Ligation Additional Past Surgical History / Comment(s): oral surgery Past Anesthesia/Blood Transfusion Reactions: No Reported Reaction Past Psychological History: No Psychological Hx Reported Smoking Status: Never smoker Past Alcohol Use History: None Reported Past Drug Use History: None Reported - Past Family History Mother Family Medical History: No Reported History General Exam Limitations: no limitations General appearance: alert, in no apparent distress Head exam: Present: atraumatic, normocephalic, normal inspection Eye exam: Present: normal appearance, PERRL, EOMI. Absent: scleral icterus, conjunctival injection, periorbital swelling ENT exam: Present: normal exam, mucous membranes moist Neck exam: Present: normal inspection. Absent: tenderness, meningismus, lymphadenopathy Respiratory exam: Present: normal lung sounds bilaterally. Absent: respiratory distress, wheezes, rales, rhonchi, stridor Cardiovascular Exam: Present: regular rate, normal rhythm, normal heart sounds. Absent: systolic murmur, diastolic murmur, rubs, gallop, clicks GI/Abdominal exam: Present: soft, normal bowel sounds. Absent: distended, tenderness, guarding, rebound, rigid Extremities exam: Present: normal inspection, full ROM, normal capillary refill. Absent: tenderness, pedal edema, joint swelling, calf tenderness Back exam: Present: normal inspection Neurological exam: Present: alert, oriented X3, CN II-XII intact Psychiatric exam: Present: normal affect, normal mood Skin exam: Present: warm, dry, intact, normal color. Absent: rash Course Vital Signs 06/23/19 06/23/19 17:10 20:15 Temperature 97.8 F Pulse Rate 88 95 Respiratory 20 18 Rate Blood Pressure 146/69 126/80 O2 Sat by Pulse 99 100 Oximetry - Reevaluation(s) Reevaluation #1: 06/23/19 20:32 Records reviewed Reevaluation #2: 06/23/19 20:32 Patient remains in no acute distress Reevaluation #3: 06/23/19 20:32 Patient failure made aware findings, questions are answered - Consultations Consultation #1: Spoke with Dr. Parekh who is updated regarding findings Consultation #2: Spoke with Dr. Cutler is acceptable for admission Medical Decision Making - Medical Decision Making 18-year-old female the ER for evaluation of lung mass, likely lymphoma. Patient to be admitted to evaluate regards to possibility of lymphoma versus other cause of mass - Lab Data Result diagrams: 06/23/19 17:25 06/23/19 17:25 Lab Results 06/23/19 06/23/19 06/23/19 Range/Units 17:25 17:25 17:25 WBC 16.3 H (4.0-11.0) k/uL RBC 4.34 (3.80-5.40) m/uL Hgb 11.8 (11.4-16.0) gm/dL Hct 36.7 (34.0-46.0) % MCV 84.6 (80.0-100.0) fL MCH 27.1 (25.0-35.0) pg MCHC 32.0 (31.0-37.0) g/dL RDW 13.3 (11.5-15.5) % Plt Count 485 H (150-450) k/uL Neutrophils % 85 % Lymphocytes % 11 % Monocytes % 3 % Eosinophils % 1 % Basophils % 0 % Neutrophils # 13.8 H (1.3-7.7) k/uL Lymphocytes # 1.7 (1.0-4.8) k/uL Monocytes # 0.5 (0-1.0) k/uL Eosinophils # 0.2 (0-0.7) k/uL Basophils # 0.0 (0-0.2) k/uL PT (9.0-12.0) sec INR (<1.2) APTT (22.0-30.0) sec Sodium 141 (137-145) mmol/L Potassium 4.1 (3.5-5.1) mmol/L Chloride 104 (98-107) mmol/L Carbon Dioxide 29 (22-30) mmol/L Anion Gap 8 mmol/L BUN 8 (7-17) mg/dL Creatinine 0.70 (0.52-1.04) mg/dL Est GFR (CKD-EPI)AfAm >90 (>60 ml/min/1.73 sqM) Est GFR (CKD-EPI)NonAf >90 (>60 ml/min/1.73 sqM) Glucose 88 (74-99) mg/dL Plasma Lactic Acid Chau 0.7 (0.7-2.0) mmol/L Calcium 9.5 (8.4-10.2) mg/dL Total Bilirubin 0.5 (0.2-1.3) mg/dL AST 13 L (14-36) U/L ALT 7 (4-34) U/L Alkaline Phosphatase 142 H (38-126) U/L Troponin I (0.000-0.034) ng/mL NT-Pro-B Natriuret Pep pg/mL Total Protein 7.3 (6.3-8.2) g/dL Albumin 3.9 (3.5-5.0) g/dL Urine Color Urine Appearance (Clear) Urine pH (5.0-8.0) Ur Specific Roslyn (1.001-1.035) Urine Protein (Negative) Urine Glucose (UA) (Negative) Urine Ketones (Negative) Urine Blood (Negative) Urine Nitrite (Negative) Urine Bilirubin (Negative) Urine Urobilinogen (<2.0) mg/dL Ur Leukocyte Esterase (Negative) Urine RBC (0-5) /hpf Urine WBC (0-5) /hpf Ur Squamous Epith Cells (0-4) /hpf Urine Bacteria (None) /hpf Urine Mucus (None) /hpf 06/23/19 06/23/19 06/23/19 Range/Units 18:30 18:45 18:45 WBC (4.0-11.0) k/uL RBC (3.80-5.40) m/uL Hgb (11.4-16.0) gm/dL Hct (34.0-46.0) % MCV (80.0-100.0) fL MCH (25.0-35.0) pg MCHC (31.0-37.0) g/dL RDW (11.5-15.5) % Plt Count (150-450) k/uL Neutrophils % % Lymphocytes % % Monocytes % % Eosinophils % % Basophils % % Neutrophils # (1.3-7.7) k/uL Lymphocytes # (1.0-4.8) k/uL Monocytes # (0-1.0) k/uL Eosinophils # (0-0.7) k/uL Basophils # (0-0.2) k/uL PT 9.7 (9.0-12.0) sec INR 0.9 (<1.2) APTT 27.7 (22.0-30.0) sec Sodium (137-145) mmol/L Potassium (3.5-5.1) mmol/L Chloride (98-107) mmol/L Carbon Dioxide (22-30) mmol/L Anion Gap mmol/L BUN (7-17) mg/dL Creatinine (0.52-1.04) mg/dL Est GFR (CKD-EPI)AfAm (>60 ml/min/1.73 sqM) Est GFR (CKD-EPI)NonAf (>60 ml/min/1.73 sqM) Glucose (74-99) mg/dL Plasma Lactic Acid Chau (0.7-2.0) mmol/L Calcium (8.4-10.2) mg/dL Total Bilirubin (0.2-1.3) mg/dL AST (14-36) U/L ALT (4-34) U/L Alkaline Phosphatase (38-126) U/L Troponin I <0.012 (0.000-0.034) ng/mL NT-Pro-B Natriuret Pep pg/mL Total Protein (6.3-8.2) g/dL Albumin (3.5-5.0) g/dL Urine Color Yellow Urine Appearance Cloudy H (Clear) Urine pH 6.0 (5.0-8.0) Ur Specific Roslyn 1.015 (1.001-1.035) Urine Protein Negative (Negative) Urine Glucose (UA) Negative (Negative) Urine Ketones Negative (Negative) Urine Blood Small H (Negative) Urine Nitrite Negative (Negative) Urine Bilirubin Negative (Negative) Urine Urobilinogen <2.0 (<2.0) mg/dL Ur Leukocyte Esterase Moderate H (Negative) Urine RBC 3 (0-5) /hpf Urine WBC 4 (0-5) /hpf Ur Squamous Epith Cells 1 (0-4) /hpf Urine Bacteria Many H (None) /hpf Urine Mucus Many H (None) /hpf 06/23/19 Range/Units 18:45 WBC (4.0-11.0) k/uL RBC (3.80-5.40) m/uL Hgb (11.4-16.0) gm/dL Hct (34.0-46.0) % MCV (80.0-100.0) fL MCH (25.0-35.0) pg MCHC (31.0-37.0) g/dL RDW (11.5-15.5) % Plt Count (150-450) k/uL Neutrophils % % Lymphocytes % % Monocytes % % Eosinophils % % Basophils % % Neutrophils # (1.3-7.7) k/uL Lymphocytes # (1.0-4.8) k/uL Monocytes # (0-1.0) k/uL Eosinophils # (0-0.7) k/uL Basophils # (0-0.2) k/uL PT (9.0-12.0) sec INR (<1.2) APTT (22.0-30.0) sec Sodium (137-145) mmol/L Potassium (3.5-5.1) mmol/L Chloride (98-107) mmol/L Carbon Dioxide (22-30) mmol/L Anion Gap mmol/L BUN (7-17) mg/dL Creatinine (0.52-1.04) mg/dL Est GFR (CKD-EPI)AfAm (>60 ml/min/1.73 sqM) Est GFR (CKD-EPI)NonAf (>60 ml/min/1.73 sqM) Glucose (74-99) mg/dL Plasma Lactic Acid Chau (0.7-2.0) mmol/L Calcium (8.4-10.2) mg/dL Total Bilirubin (0.2-1.3) mg/dL AST (14-36) U/L ALT (4-34) U/L Alkaline Phosphatase (38-126) U/L Troponin I (0.000-0.034) ng/mL NT-Pro-B Natriuret Pep 106 pg/mL Total Protein (6.3-8.2) g/dL Albumin (3.5-5.0) g/dL Urine Color Urine Appearance (Clear) Urine pH (5.0-8.0) Ur Specific [place] (1.001-1.035) Urine Protein (Negative) Urine Glucose (UA) (Negative) Urine Ketones (Negative) Urine Blood (Negative) Urine Nitrite (Negative) Urine Bilirubin (Negative) Urine Urobilinogen (<2.0) mg/dL Ur Leukocyte Esterase (Negative) Urine RBC (0-5) /hpf Urine WBC (0-5) /hpf Ur Squamous Epith Cells (0-4) /hpf Urine Bacteria (None) /hpf Urine Mucus (None) /hpf - EKG Data -: EKG Interpreted by Me (EKG shows sinus rhythm rate of 95, [place] 130, QRS 78, QTC ) - Radiology Data Radiology results: report reviewed (CTA chest and pelvis positive for medi astinal mass likely lymphoma), image reviewed Disposition Clinical Impression: Lung mass Narrative: Question Lymphoma Disposition: ADMITTED IP TO THIS HOSP Condition: Good Is patient prescribed a controlled substance at d/c from ED?: No Referrals: Lawrence Parekh MD [Primary Care Provider] - 1-2 days
[2019-06-23 18:48] LABS: Appearance,Urine Cloudy (Clear); Bacteria,Urine Many /hpf; Bilirubin,Urine Negative (Negative); Blood,Urine Small (Negative); Color,Urine Yellow; Glucose,Urine (UA) Negative (Negative); Ketones,Urine Negative (Negative); Leukocyte Esterase,Urine Moderate (Negative); Mucus,Urine Many /hpf; Nitrite,Urine Negative (Negative); Protein,Urine Negative (Negative); RBC,Urine 3 /hpf (0-5); Specific Gravity,Urine 1.015 (1.001-1.035); Squamous Epithelial Cell,Urine 1 /hpf (0-4); Urobilinogen,Urine <2.0 mg/dL (<2.0); WBC,Urine 4 /hpf (0-5)
[2019-06-23 19:04] LABS: Basophils % (A) 0 %; Eosinophils # (A) 0.2 k/uL (0-0.7); Eosinophils % (A) 1 %; HCT 36.7 % (34.0-46.0); HGB 11.8 gm/dL (11.4-16.0); Lymphocytes # (A) 1.7 k/uL (1.0-4.8); Lymphocytes % (A) 11 %; MCH 27.1 pg (25.0-35.0); MCV 84.6 fL (80.0-100.0); Mean Platelet Volume 6.9; Monocytes # (A) 0.5 k/uL (0-1.0); Monocytes % (A) 3 %; Neutrophils # (A) 13.8 k/uL (1.3-7.7); Neutrophils % (A) 85 %; Platelet Count 485 k/uL (150-450); RBC 4.34 m/uL (3.80-5.40); RDW 13.3 % (11.5-15.5); WBC 16.3 k/uL (4.0-11.0)
[2019-06-23 19:06] LABS: ALT 7 U/L (4-34); AST 13 U/L (14-36); African American GFR (CKD) >90 (>60 ml/min/1.73 sqM); Albumin 3.9 g/dL (3.5-5.0); Alkaline Phosphatase 142 U/L (38-126); Anion Gap 8 mmol/L; Blood Urea Nitrogen 8 mg/dL (7-17); Calcium 9.5 mg/dL (8.4-10.2); Carbon Dioxide 29 mmol/L (22-30); Chloride 104 mmol/L (98-107); Glucose 88 mg/dL (74-99); Non-African American GFR(CKD) >90 (>60 ml/min/1.73 sqM); Potassium 4.1 mmol/L (3.5-5.1); Sodium 141 mmol/L (137-145); Total Bilirubin 0.5 mg/dL (0.2-1.3); Total Protein 7.3 g/dL (6.3-8.2)
[2019-06-23 19:33] LABS: INR 0.9 (<1.2); Partial Thromboplastin Time 27.7 sec (22.0-30.0); Prothrombin Time 9.7 sec (9.0-12.0)
--- NOTE | 2019-06-23 20:04 | CT ---
EXAMINATION TYPE: CT ChestAbdPelvis w con DATE OF EXAM: 06/23/2019 COMPARISON: None HISTORY: Left sided lump on neck and cough. CT DLP: 968.8 mGycm Automated exposure control for dose reduction was used. CONTRAST: Performed with IV Contrast, patient injected with 100ml mL of Isovue 300. There is large anterior mediastinal noncalcified mass. This measures 11 cm in greatest dimension. The re is also paratracheal lymphadenopathy with multiple lymph nodes that measure up to 2.7 cm. There ar e no hilar masses. There is normal branching pattern of the great vessels on the aortic arch. Great v essels appear intact. The lungs are clear of consolidation. There is 1.5 cm left paratracheal lymph n ode. Lung bases are clear. There is no pleural effusion. Heart size is normal. There is no pericardial eff usion. Liver spleen stomach pancreas gallbladder appear normal. Bile ducts are not dilated. There is no adrenal mass. Kidneys show satisfactory contrast opacification. There is no hydronephrosi s. There is no retroperitoneal adenopathy. Ureters are not dilated. Bladder distends smoothly. There is no inguinal hernia. There is no free fluid in the pelvis. Uterus is anteverted. There is no free fluid in the pelvis. Thoracic and lumbar vertebra appear intac t. There is no compression fracture. Sternum is intact. I see no bony destructive process. Ribs appea r intact. IMPRESSION: Extensive anterior mediastinal and peritracheal lymphadenopathy more likely related to lymphoma in th is relatively young patient. Also consider thymoma and less likely teratoma.
[2019-06-24] MEDS ORDERED: diphenhydrAMINE 50 MG/ML 1 ML VIAL IVP STA (00:27)
[2019-06-24] MEDS: ACETAMINOPHEN TAB 325 MG TAB PO PRN ×3 (01:01→19:46)
--- NOTE | 2019-06-24 12:06 | US ---
EXAMINATION TYPE: US FNA first lesion, US biopsy lymph node DATE OF EXAM: 06/24/2019 HISTORY: Left supraclavicular adenopathy. FINDINGS: Maximal barrier technique was utilized. The skin overlying a suitable path to the patient' s mass was localized with ultrasound and the overlying skin prepped and draped. Ultrasound was utili zed with sterile technique. Lidocaine was used for local anesthesia. A skin min was made with a sc alpel. A 25-gauge needle was advanced under direct ultrasound into the lesion and aspirated specimen submitted to cytology. An 18-gauge needle was advanced under direct ultrasound guidance and core spe cimen obtained of the mass, additional pass was performed for flow cytometry. Specimen submitted to Pathology. Following the procedure, hemostasis achieved and the patient is discharged in stable cond ition without complication. IMPRESSION:STATUS POST ULTRASOUND GUIDED CORE AND FINE-NEEDLE ASPIRATION BIOPSY OF left clavicular ad enopathy, PATHOLOGY IS PENDING. THIS PROCEDURE IS PERFORMED BY THE UNDERSIGNED.
[2019-06-24 12:14] LABS: LDH 581 U/L (313-618)
[2019-06-24 13:28] VITALS: RESP 16
--- NOTE | 2019-06-24 13:35 | P.GSCN ---
History of Present Illness Consult date: 06/24/19 Reason for Consult: left supraclavicular adenopathy History of present illness: 18-year-old female has been feelingpoorly over the last 2 months or so. She has had a progressive cough that is nonproductive. She has had night sweats. Appetite is diminished. Earlier this week the patient noted a mass above left clavicle and came home from college for this to be evaluated. Yesterday chest x-ray was performed which showed a large mediastinal mass. Came to the ER last night. CT chest showed a mediastinal mass suspicious for lymphoma. We were consulted for biopsy left supraclavicular node. Review of Systems The patient denies any acute changes in vision or hearing, no dysphagia or odynophagia, no chest pain or shortness of breath, no dysuria or hematuria, no headache, no runny nose, no rectal bleeding or melena, no unexplained weight loss Past Medical History Past Medical History: No Reported History History of Any Multi-Drug Resistant Organisms: None Reported Past Surgical History: Tubal Ligation Additional Past Surgical History / Comment(s): oral surgery Past Anesthesia/Blood Transfusion Reactions: No Reported Reaction Past Psychological History: No Psychological Hx Reported Smoking Status: Never smoker Past Alcohol Use History: None Reported Past Drug Use History: None Reported - Past Family History Mother Family Medical History: No Reported History Father Family Medical History: Hypertension Medications and Allergies Home Medications Medication Instructions Recorded Confirmed Type Norgestimate-Ethinyl Estradiol 1 tab PO DAILY 06/12/18 06/23/19 History [Sprintec 28 Day Tablet] Allergies Allergy/AdvReac Type Severity Reaction Status Date / Time No Known Allergies Allergy Verified 06/23/19 21:07 Surgical - Exam Vital Signs Temp Pulse Resp BP Pulse Ox 97.8 F 88 20 146/69 99 06/23/19 17:10 06/23/19 17:10 06/23/19 17:10 06/23/19 17:10 06/23/19 17:10 Physical exam: General: Well-developed, well-nourished HEENT: Normocephalic, sclerae nonicteric, firm mass slightly tender left supraclavicular region, non-mobile Abdomen: Nontender, nondistended Extremities: No edema Neuro: Alert and oriented Results - Labs 06/23/19 17:25 06/23/19 17:25 Abnormal Lab Results - Last 24 Hours (Table) 06/23/19 06/23/19 06/23/19 Range/Units 17:25 17:25 18:30 WBC 16.3 H (4.0-11.0) k/uL Plt Count 485 H (150-450) k/uL Neutrophils # 13.8 H (1.3-7.7) k/uL AST 13 L (14-36) U/L Alkaline Phosphatase 142 H (38-126) U/L Urine Appearance Cloudy H (Clear) Urine Blood Small H (Negative) Ur Leukocyte Esterase Moderate H (Negative) Urine Bacteria Many H (None) /hpf Urine Mucus Many H (None) /hpf Diabetes panel 06/23/19 Range/Units 17:25 Sodium 141 (137-145) mmol/L Potassium 4.1 (3.5-5.1) mmol/L Chloride 104 (98-107) mmol/L Carbon Dioxide 29 (22-30) mmol/L BUN 8 (7-17) mg/dL Creatinine 0.70 (0.52-1.04) mg/dL Glucose 88 (74-99) mg/dL Calcium 9.5 (8.4-10.2) mg/dL AST 13 L (14-36) U/L ALT 7 (4-34) U/L Alkaline Phosphatase 142 H (38-126) U/L Total Protein 7.3 (6.3-8.2) g/dL Albumin 3.9 (3.5-5.0) g/dL Calcium panel 06/23/19 Range/Units 17:25 Calcium 9.5 (8.4-10.2) mg/dL Albumin 3.9 (3.5-5.0) g/dL Pituitary panel 06/23/19 Range/Units 17:25 Sodium 141 (137-145) mmol/L Potassium 4.1 (3.5-5.1) mmol/L Chloride 104 (98-107) mmol/L Carbon Dioxide 29 (22-30) mmol/L BUN 8 (7-17) mg/dL Creatinine 0.70 (0.52-1.04) mg/dL Glucose 88 (74-99) mg/dL Calcium 9.5 (8.4-10.2) mg/dL Adrenal panel 12/12/19 Range/Units 17:25 Sodium 141 (137-145) mmol/L Potassium 4.1 (3.5-5.1) mmol/L Chloride 104 (98-107) mmol/L Carbon Dioxide 29 (22-30) mmol/L BUN 8 (7-17) mg/dL Creatinine 0.70 (0.52-1.04) mg/dL Glucose 88 (74-99) mg/dL Calcium 9.5 (8.4-10.2) mg/dL Total Bilirubin 0.5 (0.2-1.3) mg/dL AST 13 L (14-36) U/L ALT 7 (4-34) U/L Alkaline Phosphatase 142 H (38-126) U/L Total Protein 7.3 (6.3-8.2) g/dL Albumin 3.9 (3.5-5.0) g/dL Assessment and Plan (1) Mediastinal mass Narrative/Plan: options discussed with the patient and her mother at the bedside earlier today. I discussed the case also with interventional radiology. Open biopsy of this suspected lymph node is an option however full excision is not. We'll plan percutaneous core biopsy at this time. If further tissue is required will revisit options of open biopsy. Current Visit: Yes Status: Acute Code(s): J98.59 - OTHER DISEASES OF Angel LORD, NOT ELSEWHERE CLASSIFIED SNOMED Code(s): 65300668
--- NOTE | 2019-06-24 15:16 | P.HPIM ---
History of Present Illness H&P Date: 06/24/19 Chief Complaint: Neck mass 18-year-old female has been feelingpoorly over the last 2 months or so. She has had a progressive cough that is nonproductive. She has had night sweats. Appetite is diminished. Earlier this week the patient noted a mass above left clavicle and came home from [facility] for this to be evaluated. Yesterday chest x-ray was performed which showed a large mediastinal mass. Patient came to the ER last night. Workup in ED with CT chest showed a mediastinal mass suspicious for lymphoma. Labwork was significant for an elevated white blood count of 16.3 with positive UA with leukocyte esterase and WBCs; patient is started on IV Rocephin and is admitted to the hospital for further evaluation by hematology and also general surgery consult for lymph node biopsy Review of Systems REVIEW OF SYSTEMS: CONSTITUTIONAL: No fever, no malaise, no fatigue. HEENT: No recent visual problems or hearing problems. Denied any sore throat. CARDIOVASCULAR: No chest pain, orthopnea, PND, no palpitations, no syncope. PULMONARY: No shortness of breath, no cough, no hemoptysis. GASTROINTESTINAL: No diarrhea, no nausea, no vomiting, no abdominal pain. NEUROLOGICAL: No headaches, no weakness, no numbness. HEMATOLOGICAL: Denies any bleeding or petechiae. GENITOURINARY: Denies any burning micturition, frequency, or urgency. MUSCULOSKELETAL/RHEUMATOLOGICAL: Denies any joint pain, swelling, or any muscle pain. ENDOCRINE: Denies any polyuria or polydipsia. The rest of the 14-point review of systems is negative. Past Medical History Past Medical History: No Reported History History of Any Multi-Drug Resistant Organisms: None Reported Past Surgical History: Tubal Ligation Additional Past Surgical History / Comment(s): oral surgery Past Anesthesia/Blood Transfusion Reactions: No Reported Reaction Past Psychological History: No Psychological Hx Reported Smoking Status: Never smoker Past Alcohol Use History: None Reported Past Drug Use History: None Reported - Past Family History Mother Family Medical History: No Reported History Father Family Medical History: Hypertension Medications and Allergies Home Medications Medication Instructions Recorded Confirmed Type Norgestimate-Ethinyl Estradiol 1 tab PO DAILY 06/12/18 06/23/19 History [Sprintec 28 Day Tablet] Allergies Allergy/AdvReac Type Severity Reaction Status Date / Time No Known Allergies Allergy Verified 06/23/19 21:07 Physical Exam Vitals: Vital Signs Temp Pulse Pulse Resp BP BP Pulse Ox 06/24/19 04:59 98 F 93 16 130/79 96 06/24/19 04:00 87 16 06/23/19 22:23 98.4 F 96 18 127/76 98 06/23/19 21:20 98.0 F 99 18 145/84 98 06/23/19 20:15 95 18 126/80 100 06/23/19 17:10 97.8 F 88 20 146/69 99 Intake and Output 06/23/19 06/24/19 06/24/19 22:59 06:59 14:59 Intake Total 999 Balance 999 Intake: Intake, IV Titration 999 Amount Sodium Chloride 0.9% 1, 999 000 ml @ 999 mls/hr IV . Q1H1M STA Rx#:[id number] Other: # Voids 2 Weight 92.079 kg PHYSICAL EXAMINATION: GENERAL: The patient is alert and oriented x3, not in any acute distress. Well developed, well nourished. HEENT: Pupils are round and equally reacting to light. EOMI. No scleral icterus. No conjunctival pallor. Normocephalic, atraumatic. No pharyngeal erythema. No thyromegaly. CARDIOVASCULAR: S1 and S2 present. No murmurs, rubs, or gallops. PULMONARY: Chest is clear to auscultation, no wheezing or crackles. ABDOMEN: Soft, nontender, nondistended, normoactive bowel sounds. No palpable organomegaly. MUSCULOSKELETAL: No joint swelling or deformity. EXTREMITIES: No cyanosis, clubbing, or pedal edema. NEUROLOGICAL: Gross neurological examination did not reveal any focal deficits. SKIN: No rashes. Results CBC & Chem 7: 06/23/19 17:25 06/23/19 17:25 Labs: Abnormal Lab Results - Last 24 Hours (Table) 06/23/19 06/23/19 06/23/19 Range/Units 17:25 17:25 18:30 WBC 16.3 H (4.0-11.0) k/uL Plt Count 485 H (150-450) k/uL Neutrophils # 13.8 H (1.3-7.7) k/uL AST 13 L (14-36) U/L Alkaline Phosphatase 142 H (38-126) U/L Urine Appearance Cloudy H (Clear) Urine Blood Small H (Negative) Ur Leukocyte Esterase Moderate H (Negative) Urine Bacteria Many H (None) /hpf Urine Mucus Many H (None) /hpf Thrombosis Risk Factor Assmnt - Choose All That Apply Any of the Below Risk Factors Present?: No Other Risk Factors: No Thrombosis Risk Factor Assessment Level: Very Low Risk Assessment and Plan Assessment: 1. Mediastinotomy mass - Hematology/oncology is consulted for recommendations on further evaluation 2. Lymphadenopathy; consult general surgery for lymph node biopsy 3. UTI; we will start patient on IV Rocephin 1 g daily; urine culture is pending; further recommendations pending final culture results 4. Chronic cough; symptomatic treatment 5. Anxiety; we will start patient on Ativan 0.5 mg 3 times a day when necessary 6. DVT prophylaxis; SCDs/early ambulation CODE STATUS; full code Time with Patient: Greater than 30
[2019-06-24] MEDS ORDERED: BENZONATATE 100 MG CAP PO PRN (15:17)
--- NOTE | 2019-06-24 17:33 | P.CONS ---
History of Present Illness - Reason for Consult Consult date: 06/24/19 mediastinal mass and adenopathy - History of Present Illness the patient is a 18-year-old white female, with no major medical problems. She had presented to her heel blacker with complains of a lump in the left lower neck. On palpation she was found to have a palpable left medial supraclavicular node. The case was discussed with the heel blacker and the patient sent in to the emergency room for further imaging. CT of the chest abdomen and pelvis revealed a large mediastinal mass in addition to peritracheal adenopathy. She was thus admitted for further management. No prior history of malignancy. She does complain of night sweats, as well as a persistent dry cough over the past month. Review of Systems Constitutional: Reports sweats Eyes: denies blurred vision, denies pain Ears: deny: decreased hearing, ear discharge, earache, tinnitus Ears, nose, mouth and throat: Denies headache, Denies sore throat Cardiovascular: Denies chest pain, Denies shortness of breath Respiratory: Reports cough Gastrointestinal: Denies abdominal pain, Denies diarrhea, Denies nausea, Denies vomiting Genitourinary: Denies dysuria, Denies hematuria Menstruation: Reports period heavy Musculoskeletal: Denies myalgias Integumentary: Denies pruritus, Denies rash Neurological: Denies numbness, Denies weakness Psychiatric: Denies anxiety, Denies depression Endocrine: Denies fatigue, Denies weight change Hematologic/Lymphatic: Reports as per HPI, Reports lymphadenopathy Past Medical History Past Medical History: No Reported History History of Any Multi-Drug Resistant Organisms: None Reported Past Surgical History: Tubal Ligation Additional Past Surgical History / Comment(s): oral surgery Past Anesthesia/Blood Transfusion Reactions: No Reported Reaction Past Psychological History: No Psychological Hx Reported Smoking Status: Never smoker Past Alcohol Use History: None Reported Past Drug Use History: None Reported - Past Family History Mother Family Medical History: No Reported History Father Family Medical History: Hypertension Medications and Allergies Home Medications Medication Instructions Recorded Confirmed Type Norgestimate-Ethinyl Estradiol 1 tab PO DAILY 06/12/18 06/23/19 History [Sprintec 28 Day Tablet] Allergies Allergy/AdvReac Type Severity Reaction Status Date / Time No Known Allergies Allergy Verified 06/23/19 21:07 Physical Exam Vitals: Vital Signs Temp Pulse Pulse Pulse Resp BP BP 06/24/19 13:47 98.6 F 89 16 06/24/19 11:45 95 16 06/24/19 11:34 95 16 06/24/19 11:26 102 H 16 06/24/19 11:12 98.2 F 101 H 18 06/24/19 04:59 98 F 93 16 130/79 06/24/19 04:00 87 16 06/23/19 22:23 98.4 F 96 18 127/76 06/23/19 21:20 98.0 F 99 18 145/84 06/23/19 20:15 95 18 126/80 BP Pulse Ox 06/24/19 13:47 103/65 96 06/24/19 11:45 140/84 98 06/24/19 11:34 125/76 99 06/24/19 11:26 141/86 98 06/24/19 11:12 142/88 98 06/24/19 04:59 96 06/24/19 04:00 06/23/19 22:23 98 06/23/19 21:20 98 06/23/19 20:15 100 Intake and Output 06/24/19 06/24/19 06/24/19 06:59 14:59 22:59 Other: # Voids 2 - Constitutional General appearance: no acute distress - EENT Eyes: EOMI, PERRLA ENT: hearing grossly normal, normal oropharynx - Neck Neck: lymphadenopathy (2 cm palpable node left medial supraclavicular, movable) - Respiratory Respiratory: bilateral: CTA - Cardiovascular Rhythm: regular Heart sounds: normal: S1, S2 - Gastrointestinal General gastrointestinal: normal bowel sounds, soft - Integumentary Integumentary: normal - Neurologic Neurologic: CNII-XII intact - Musculoskeletal Musculoskeletal: strength equal bilaterally - Psychiatric Psychiatric: A&O x's 3, appropriate affect Results CBC & Chem 7: 06/23/19 17:25 06/23/19 17:25 Labs: Abnormal Lab Results - Last 24 Hours (Table) 06/23/19 06/23/19 06/23/19 Range/Units 17:25 17:25 18:30 WBC 16.3 H (4.0-11.0) k/uL Plt Count 485 H (150-450) k/uL Neutrophils # 13.8 H (1.3-7.7) k/uL AST 13 L (14-36) U/L Alkaline Phosphatase 142 H (38-126) U/L Urine Appearance Cloudy H (Clear) Urine Blood Small H (Negative) Ur Leukocyte Esterase Moderate H (Negative) Urine Bacteria Many H (None) /hpf Urine Mucus Many H (None) /hpf CT scan - abdomen: report reviewed CT scan - chest: report reviewed CT scan - pelvis: report reviewed Assessment and Plan (1) Mediastinal mass Narrative/Plan: the patient has mediastinal mass with associated adenopathy. She also has B symptoms in terms of sweats. Other symptoms include cough, likely due to mass effects from the mediastinal mass. - The imaging studies, physical findings, and medications were discussed in detail with her, as well as her parents were at the bedside. The chemical picture is highly suggestive of malignancy. In this age group, lymphoma, especially Hodgkin's disease would be the major differential. Other possibilities include germ cell tumor, thymoma, thyroid tumor as well as teratoma. Overall these are less likely than lymphoma. - On CT of the chest abdomen and pelvis the disease appears to be limited to the upper mediastinum as noted. - The patient will need tissue diagnosis as the next. FNA and core biopsy have been performed and results are pending. Given the high likelihood of lymphoma, an excisional biopsy with maximal amount of tissue would be preferred. This will be discussed with surgery. - Case has also been discussed with her primary care physician in detail and plan formulated - Lab work up for adenopathy has been ordered, including protein electrophoresis studies, autoimmune markers, and HIV. This was also discussed with the patient and her family - Given the high likelihood of lymphoma and subsequent need for treatment, an echocardiogram will be ordered for ejection fraction evaluation, prior to anticipated chemotherapy - The patient and her family were intensively counseled about need for effective contraception given the current clinical situation and need for additional treatment going forward. Current Visit: Yes Status: Acute Code(s): J98.59 - OTHER DISEASES OF MEDIASTINUM, NOT ELSEWHERE CLASSIFIED SNOMED Code(s): 28581439 (2) Anemia Narrative/Plan: the patient does have a prior history of heavy periods. Hemoglobin is in a safe range. We will check iron stores Current Visit: Yes Status: Acute Code(s): D64.9 - ANEMIA, UNSPECIFIED SNOMED Code(s): 093912431
[2019-06-24 19:06] LABS: Protein, Total 6.8 g/dL (6.2-8.2)
[2019-06-24 19:10] LABS: Rheumatoid Factor, Qnt 10 IU/mL (0-15)
[2019-06-24 21:17] LABS: HIV 1 AB Non-Reactive (Non-Reactive); HIV 2 AB Non-Reactive (Non-Reactive); HIV AB P24 Non-Reactive (Non-Reactive); HIV P24 AG Non-Reactive (Non-Reactive)
[2019-06-24] MEDS: LORazepam 2 MG/ML INJ IV PRN (23:54)
[2019-06-25 07:27] LABS: Basophils % (A) 0 %; Eosinophils # (A) 0.3 k/uL (0-0.7); Eosinophils % (A) 2 %; HCT 36.4 % (34.0-46.0); HGB 11.6 gm/dL (11.4-16.0); Lymphocytes # (A) 1.4 k/uL (1.0-4.8); Lymphocytes % (A) 8 %; MCH 26.8 pg (25.0-35.0); MCHC 31.8 g/dL (31.0-37.0); MCV 84.2 fL (80.0-100.0); Mean Platelet Volume 7.1; Monocytes # (A) 0.5 k/uL (0-1.0); Monocytes % (A) 3 %; Neutrophils # (A) 15.4 k/uL (1.3-7.7); Neutrophils % (A) 87 %; Platelet Count 518 k/uL (150-450); RBC 4.32 m/uL (3.80-5.40); RDW 13.3 % (11.5-15.5); Reticulocyte % 1.7 % (0.5-2.0); WBC 17.7 k/uL (4.0-11.0)
[2019-06-25 07:39] LABS: African American GFR (CKD) >90 (>60 ml/min/1.73 sqM); Anion Gap 11 mmol/L; Blood Urea Nitrogen 7 mg/dL (7-17); Calcium 9.4 mg/dL (8.4-10.2); Carbon Dioxide 23 mmol/L (22-30); Chloride 106 mmol/L (98-107); Glucose 95 mg/dL (74-99); Non-African American GFR(CKD) >90 (>60 ml/min/1.73 sqM); Potassium 4.2 mmol/L (3.5-5.1); Sodium 140 mmol/L (137-145)
--- NOTE | 2019-06-25 11:51 | P.PN ---
Subjective Progress Note Date: 06/25/19 Principal diagnosis: Mediastinal mass Patient seems to be doing better today. Cough is improved. Was able to sleep last night. White blood cell count 17.7. No shortness of breath. No stridor. Objective - Vital Signs Vital signs: Vital Signs Temp 98.0 F 06/25/19 05:00 Pulse 92 06/25/19 10:57 Resp 16 06/25/19 08:20 BP 120/74 06/25/19 05:00 Pulse Ox 95 06/25/19 05:00 Intake & Output 06/24/19 06/25/19 06/25/19 18:59 06:59 18:59 Intake Total 1080 Balance 1080 Intake: Oral 1080 Other: # Voids 3 2 - Exam Mild tenderness left supraclavicular lymph node, no palpable axillary nodes - Labs CBC & Chem 7: 06/25/19 07:11 06/25/19 07:11 Labs: Abnormal Lab Results - Last 24 Hours (Table) 06/25/19 Range/Units 07:11 WBC 17.7 H (4.0-11.0) k/uL Plt Count 518 H (150-450) k/uL Neutrophils # 15.4 H (1.3-7.7) k/uL Assessment and Plan (1) Mediastinal mass Narrative/Plan: Patient seems to be doing better. Spoke with oncology and pathology as well as the family at length. By Thursday we hope to have preliminary evaluation of the core biopsy results. Based on those findings we'll decide whether additional lymph tissue will be required to make definitive diagnosis. If preliminary findings suggest lymphoma patient will require Port-A-Cath placement as well. Will tentatively plan Port-A-Cath placement with left supraclavicular lymph node biopsy on Thursday. May discharge in the interim. Patient will call the hospital Thursday to obtain a time for the surgery and I will also speak with the patient's mother Karine by phone at [phone] Current Visit: Yes Status: Acute Code(s): J98.59 - OTHER DISEASES OF MEDIASTINUM, NOT ELSEWHERE CLASSIFIED SNOMED Code(s): 64632903
[2019-06-25 11:58] VITALS: BP 123/59; PULSE 98; TEMP 97.3
[2019-06-25] MEDS ORDERED: diphenhydrAMINE 25 MG CAP PO STA (13:09)
[2019-06-25] MEDS: LORazepam 2 MG/ML INJ IV PRN (13:33)
[2019-06-25 17:35] LABS: Ferritin 151.5 ng/mL (10.0-291.0)
[2019-06-25 17:36] LABS: % Iron Saturation 5.71 (12.00-45.00); Iron 16 ug/dL (50-170); Total Iron Binding Capacity 280 ug/dL (228-460)
--- NOTE | 2019-06-26 12:51 | ECHOF ---
Referral Reason:EF evaluation pre chemo MEASUREMENTS -------- HEIGHT: 180.3 cm WEIGHT: 92.1 kg BP: 120/74 RVIDd: 2.7 cm (< 3.3) IVSd: 1.0 cm (0.6 - 1.1) LVIDd: 3.5 cm (3.9 - 5.3) LVPWd: 1.0 cm (0.6 - 1.1) IVSs: 1.1 cm LVIDs: 2.2 cm LVPWs: 1.4 cm LAESV Index (A-L): 13.40 ml/m Ao Diam: 2.5 cm (2.0 - 3.7) AV Cusp: 2.2 cm (1.5 - 2.6) LA Diam: 2.0 cm (2.7 - 3.8) MV EXCURSION: 23.712 mm (> 18.000) MV EF SLOPE: 78 mm/s (70 - 150) EPSS: 0.4 cm MV E Augustus: 0.88 m/s MV DecT: 150 ms MV A Augustus: 0.42 m/s MV E/A Ratio: 2.11 FINDINGS -------- Sinus rhythm. This was a technically adequate study. The left ventricular size is normal. Left ventricular wall thickness is normal. There is normal g lobal left ventricular contractility. Overall left ventricular systolic function is normal with, an EF between 60 - 65 %. The diastolic filling pattern is normal for the age of the patient 7.04. The right ventricle is normal in size. Normal LA size by volume 22+/-6 ml/m2. The right atrial size is normal. Interatrial and interventricular septum intact. The aortic valve is trileaflet and appears structurally normal. There is no evidence of aortic regu rgitation. There is no evidence of aortic stenosis. No mitral regurgitation. Trace tricuspid regurgitation present. Unable to estimate RVSP due to inadequate TR jet spectral do ppler profile. There is no pulmonic regurgitation present. The aortic root size is normal. The inferior vena cava is mildly dilated. There is a small, generalized pericardial effusion present. CONCLUSIONS -------- 1. Sinus rhythm. 2. This was a technically adequate study. 3. The left ventricular size is normal. 4. Left ventricular wall thickness is normal. 5. There is normal global left ventricular contractility. 6. Overall left ventricular systolic function is normal with, an EF between 60 - 65 %. 7. The diastolic filling pattern is normal for the age of the patient 7.04 8. The right ventricle is normal in size. 9. Normal LA size by volume 22+/-6 ml/m2. 10. The right atrial size is normal. 11. Interatrial and interventricular septum intact. 12. The aortic valve is trileaflet and appears structurally normal. 13. There is no evidence of aortic regurgitation. 14. There is no evidence of aortic stenosis. 15. No mitral regurgitation. 16. Trace tricuspid regurgitation present. 17. Unable to estimate RVSP due to inadequate TR jet spectral doppler profile. 18. There is no pulmonic regurgitation present. 19. The aortic root size is normal. 20. The inferior vena cava is mildly dilated. 21. There is a small, generalized pericardial effusion present. CLOTH SHEARER: Thalia Marcus RDCS
[2019-06-27 13:29] LABS: Albumin 3.11 g/dL (3.80-4.90)
[2019-06-27 13:42] LABS: Free Kappa Lt Chain Qnt, Serum 1.69 mg/dL (0.33-1.94)
== END 2019-06-25 16:51 | disposition home or self-care (01) | DRG 580 ==
LOC: EC 17:07 → 3NMEDONC 20:51
PROVIDERS: ADMIT Hospitalist; ATTEND Hospitalist
PROC: 07B23ZX Excision of Left Neck Lymphatic, Percutaneous Approach, Diagnostic (ICD-10-PCS; principal; 2019-06-24)
DX: R22.2 Localized swelling, mass and lump, trunk (principal); N39.0 Urinary tract infection, site not specified; D64.9 Anemia, unspecified; F41.9 Anxiety disorder, unspecified; Z82.49 Family history of ischemic heart disease and other diseases of the circulatory system
CPT/HCPCS: 10005; 36415; 38505; 71260; 74177; 76942; 80048; 80053; 81001; 82164; 82728; 83540; 83550; 83605; 83615; 83880; 83883; 84165; 84484; 85025; 85045; 85610; 85730; 86038; 86334; 86431; 87390; 88173; 88305; 93005; 93306; 96360; 96361; 99285

== ENCOUNTER → 2019-06-23 | Outpatient (CLI) | payer BC ==
--- NOTE | 2019-06-23 16:04 | XR ---
EXAMINATION TYPE: XR chest 2V DATE OF EXAM: 06/23/2019 COMPARISON: NONE HISTORY: Chest pain TECHNIQUE: Frontal and lateral views of the chest are obtained. FINDINGS: There is a left suprahilar mass identified. CT is recommended for further evaluation. No evidence for pneumothorax. No pleural effusion. The cardiac silhouette size is within normal limits. The osseous structures are grossly intact. IMPRESSION: 1. Left suprahilar mass identified for which CT is recommended. A [place] level critical message alert has been initiated for Lawrence Parekh MD via the [email or web address] Critical Results System on 06/23/2019 4:02 PM. This message alert has been sent to Lawrence graham MD via the preferences provided by the clinician for the receipt of Radiology Critical Findings . Message ID [id number].
[2019-06-23 16:23] LABS: Basophils % (A) 0 %; Eosinophils # (A) 0.2 k/uL (0-0.7); Eosinophils % (A) 1 %; HCT 36.8 % (34.0-46.0); HGB 12.1 gm/dL (11.4-16.0); Lymphocytes # (A) 1.8 k/uL (1.0-4.8); Lymphocytes % (A) 12 %; MCH 27.9 pg (25.0-35.0); MCV 84.5 fL (80.0-100.0); Monocytes # (A) 0.4 k/uL (0-1.0); Monocytes % (A) 3 %; Neutrophils # (A) 12.3 k/uL (1.3-7.7); Neutrophils % (A) 83 %; Platelet Count 550 k/uL (150-450); RBC 4.35 m/uL (3.80-5.40); RDW 13.1 % (11.5-15.5); WBC 14.9 k/uL (4.0-11.0)
[2019-06-23 17:25] LABS: Erythrocyte Sedimentation Rate 91 mm/hr (0-20)
== END | disposition home or self-care (01) ==
LOC: LABWHC1 15:11
PROVIDERS: ATTEND Pediatrics
DX: R22.2 Localized swelling, mass and lump, trunk (principal)
CPT/HCPCS: 36415; 71046; 85025; 85652

== ENCOUNTER 2019-08-31 01:24 | Emergency (ER) | payer BC ==
[2019-08-31] MEDS ORDERED: CEFEPIME 2 GM in SODIUM CHLORIDE 0.9% 100 ML IVPB ONE (01:30)
--- NOTE | 2019-08-31 01:51 | ED ---
Fever HPI - General Chief Complaint: Fever Stated Complaint: Fever Time Seen by Provider: 08/31/19 01:25 Source: patient Mode of arrival: ambulatory Limitations: no limitations - History of Present Illness Initial Comments: This patient is a 19-year-old woman who has history of stage IIB Hodgkin's lymphoma, with primary in the chest. The patient receives her oncologic care through the [facility]. She has recently completed the third cycle of chemotherapy. The patient then developed fever and chills with temperature at home tonight. The patient phoned her oncologist on-call and was directed to be seen in the emergency department. She denies any symptoms of a focal infection. See the review of systems. MD Complaint: fever -: hour(s) Temperature Source: oral Context: on chemotherapy Associated Symptoms: chills Treatments Prior to Arrival: none - Related Data Home Medications Medication Instructions Recorded Confirmed Famotidine [Pepcid] 20 mg PO DAILY 07/19/19 08/30/19 Norgestimate-Ethinyl Estradiol 1 tab PO DAILY 07/19/19 08/30/19 [Sprintec 28 Day Tablet] Ondansetron HCl [Zofran] 8 mg PO TID 07/19/19 08/30/19 Promethazine [Phenergan] 25 mg PO Q6HR 07/19/19 08/30/19 Sulfamethox-Tmp 800-160Mg [Bactrim 1 tab PO Q12HR 07/19/19 08/30/19 DS 800-160 mg] Allergies Allergy/AdvReac Type Severity Reaction Status Date / Time No Known Allergies Allergy Verified 08/31/19 01:32 Review of Systems ROS Statement: Those systems with pertinent positive or pertinent negative responses have been documented in the HPI. ROS Other: All systems not noted in ROS Statement are negative. Constitutional: Reports: fever, chills. Denies: weakness Eyes: Denies: eye pain, eye discharge ENT: Denies: ear pain, throat pain, congestion Respiratory: Denies: cough, dyspnea Cardiovascular: Denies: chest pain, syncope Gastrointestinal: Denies: abdominal pain, nausea, vomiting, diarrhea Genitourinary: Denies: urgency, dysuria, frequency, hematuria, abnormal menses Musculoskeletal: Denies: back pain Skin: Denies: rash Neurological: Denies: headache, weakness, numbness Past Medical History Past Medical History: Cancer Additional Past Medical History / Comment(s): HODGKIN LYMPHOMA History of Any Multi-Drug Resistant Organisms: None Reported Past Surgical History: Tubal Ligation Additional Past Surgical History / Comment(s): oral surgery. RIGHT TUBAL LIGATION. Past Anesthesia/Blood Transfusion Reactions: No Reported Reaction Past Psychological History: No Psychological Hx Reported Smoking Status: Never smoker Past Alcohol Use History: None Reported Past Drug Use History: None Reported - Past Family History Mother Family Medical History: No Reported History Father Family Medical History: Hypertension General Exam Limitations: no limitations General appearance: alert, in no apparent distress Head exam: Present: atraumatic, normocephalic Eye exam: Present: normal appearance. Absent: scleral icterus, conjunctival injection ENT exam: Present: normal oropharynx, mucous membranes moist, TM's normal bilaterally, normal external ear exam Neck exam: Present: normal inspection, full ROM. Absent: meningismus Respiratory exam: Present: normal lung sounds bilaterally. Absent: respiratory distress, wheezes, rales, rhonchi, stridor Cardiovascular Exam: Present: normal rhythm, tachycardia, systolic murmur (1/6 s ystolic ejection murmur). Absent: diastolic murmur, rubs, gallop GI/Abdominal exam: Present: soft. Absent: distended, tenderness, guarding, rebound, rigid, mass Extremities exam: Present: normal inspection, normal capillary refill, other (PICC line present in right antecubital fossa, the dressing is intact. No erythema, warmth, drainage or tenderness.). Absent: pedal edema, calf tenderness Back exam: Present: normal inspection. Absent: CVA tenderness (R), CVA tenderness (L) Neurological exam: Present: alert, oriented X3 Skin exam: Present: warm, dry, intact, normal color. Absent: rash Course Vital Signs 08/31/19 08/31/19 01:28 04:16 Temperature 100.9 F H 101.4 F H Pulse Rate 157 H Respiratory 24 Rate Blood Pressure 136/101 O2 Sat by Pulse 100 Oximetry Medical Decision Making - Medical Decision Making We did receive a call regarding this patient prior to her arrival with oncology recommendations. Patient reportedly was recently found to have neutrophil count of 900 and there is concern of neutropenia. Patient is seen and evaluated on arrival, with workup as per oncologist. Patient also given empiric cefepime per recommendation. After return of the patient's studies, I did discuss with oncologist, Dr. Bro, who did request patient be transferred to [facility] by ambulance to have admission. Discussed results and plan with family who are in accord. Case discussed with Marin, in emergency department [facility] who will accept transfer. - Lab Data Result diagrams: 08/31/19 03:18 08/31/19 03:18 Lab Results 08/31/19 08/31/19 08/31/19 Range/Units 01:30 02:37 03:18 WBC 4.1 (3.8-10.6) k/uL RBC 4.30 (3.80-5.40) m/uL Hgb 11.7 (11.4-16.0) gm/dL Hct 36.2 (34.0-46.0) % MCV 84.2 (80.0-100.0) fL MCH 27.1 (25.0-35.0) pg MCHC 32.2 (31.0-37.0) g/dL RDW 15.7 H (11.5-15.5) % Plt Count 266 (150-450) k/uL Neutrophils % 79 % Lymphocytes % 15 % Monocytes % 2 % Eosinophils % 2 % Basophils % 0 % Neutrophils # 3.2 (1.3-7.7) k/uL Lymphocytes # 0.6 L (1.0-4.8) k/uL Monocytes # 0.1 (0-1.0) k/uL Eosinophils # 0.1 (0-0.7) k/uL Basophils # 0.0 (0-0.2) k/uL PT (9.0-12.0) sec INR (<1.2) APTT (22.0-30.0) sec Sodium (137-145) mmol/L Potassium (3.5-5.1) mmol/L Chloride (98-107) mmol/L Carbon Dioxide (22-30) mmol/L Anion Gap mmol/L BUN (7-17) mg/dL Creatinine (0.52-1.04) mg/dL Est GFR (CKD-EPI)AfAm (>60 ml/min/1.73 sqM) Est GFR (CKD-EPI)NonAf (>60 ml/min/1.73 sqM) Glucose (74-99) mg/dL Plasma Lactic Acid Chau (0.7-2.0) mmol/L Calcium (8.4-10.2) mg/dL Total Bilirubin (0.2-1.3) mg/dL AST (14-36) U/L ALT (4-34) U/L Alkaline Phosphatase (38-126) U/L Total Protein (6.3-8.2) g/dL Albumin (3.5-5.0) g/dL Urine Color Yellow Urine Appearance Clear (Clear) Urine pH 8.0 (5.0-8.0) Ur Specific [place] 1.005 (1.001-1.035) Urine Protein Negative (Negative) Urine Glucose (UA) Negative (Negative) Urine Ketones Negative (Negative) Urine Blood Negative (Negative) Urine Nitrite Negative (Negative) Urine Bilirubin Negative (Negative) Urine Urobilinogen <2.0 (<2.0) mg/dL Ur Leukocyte Esterase Negative (Negative) Influenza Type A RNA Not Detected (Not Detectd) Influenza Type B (PCR) Not Detected (Not Detectd) 08/31/19 08/31/19 08/31/19 Range/Units 03:18 03:18 03:18 WBC (3.8-10.6) k/uL RBC (3.80-5.40) m/uL Hgb (11.4-16.0) gm/dL Hct (34.0-46.0) % MCV (80.0-100.0) fL MCH (25.0-35.0) pg MCHC (31.0-37.0) g/dL RDW (11.5-15.5) % Plt Count (150-450) k/uL Neutrophils % % Lymphocytes % % Monocytes % % Eosinophils % % Basophils % % Neutrophils # (1.3-7.7) k/uL Lymphocytes # (1.0-4.8) k/uL Monocytes # (0-1.0) k/uL Eosinophils # (0-0.7) k/uL Basophils # (0-0.2) k/uL PT 9.3 (9.0-12.0) sec INR 0.9 (<1.2) APTT 24.7 (22.0-30.0) sec Sodium 135 L (137-145) mmol/L Potassium 4.7 (3.5-5.1) mmol/L Chloride 104 (98-107) mmol/L Carbon Dioxide 23 (22-30) mmol/L Anion Gap 8 mmol/L BUN 15 (7-17) mg/dL Creatinine 0.71 (0.52-1.04) mg/dL Est GFR (CKD-EPI)AfAm >90 (>60 ml/min/1.73 sqM) Est GFR (CKD-EPI)NonAf >90 (>60 ml/min/1.73 sqM) Glucose 93 (74-99) mg/dL Plasma Lactic Acid Chau 1.3 (0.7-2.0) mmol/L Calcium 9.3 (8.4-10.2) mg/dL Total Bilirubin 0.4 (0.2-1.3) mg/dL AST 18 (14-36) U/L ALT 7 (4-34) U/L Alkaline Phosphatase 72 (38-126) U/L Total Protein 6.9 (6.3-8.2) g/dL Albumin 3.9 (3.5-5.0) g/dL Urine Color Urine Appearance (Clear) Urine pH (5.0-8.0) Ur Specific [place] (1.001-1.035) Urine Protein (Negative) Urine Glucose (UA) (Negative) Urine Ketones (Negative) Urine Blood (Negative) Urine Nitrite (Negative) Urine Bilirubin (Negative) Urine Urobilinogen (<2.0) mg/dL Ur Leukocyte Esterase (Negative) Influenza Type A RNA (Not Detectd) Influenza Type B (PCR) (Not Detectd) - EKG Data -: EKG Interpreted by [place] EKG shows normal: sinus rhythm, axis (Normal), intervals (Normal), QRS complexes (Normal), ST-T waves (Normal) Rate: tachycardia (Rate 132 bpm) Disposition Clinical Impression: Fever, Hodgkin lymphoma Disposition: OTHER INSTITUTION NOT DEFINED Condition: Good Is patient prescribed a controlled substance at d/c from ED?: No Referrals: Lawrence Parekh MD [Primary Care Provider] - 1-2 days - Out of Hospital Transfer - Req. Specs Out of Hospital Transfer - Requested Specifics: Other Emergency Center
[2019-08-31 03:07] LABS: Appearance,Urine Clear (Clear); Color,Urine Yellow; Protein,Urine Negative (Negative); Specific Gravity,Urine 1.005 (1.001-1.035)
[2019-08-31 03:08] LABS: Bilirubin,Urine Negative (Negative); Blood,Urine Negative (Negative); Glucose,Urine (UA) Negative (Negative); Ketones,Urine Negative (Negative); Leukocyte Esterase,Urine Negative (Negative); Nitrite,Urine Negative (Negative); Urobilinogen,Urine <2.0 mg/dL (<2.0)
[2019-08-31 03:51] LABS: Basophils % (A) 0 %; Eosinophils # (A) 0.1 k/uL (0-0.7); Eosinophils % (A) 2 %; HCT 36.2 % (34.0-46.0); HGB 11.7 gm/dL (11.4-16.0); Lymphocytes # (A) 0.6 k/uL (1.0-4.8); Lymphocytes % (A) 15 %; MCH 27.1 pg (25.0-35.0); MCHC 32.2 g/dL (31.0-37.0); MCV 84.2 fL (80.0-100.0); Mean Platelet Volume 7.4; Monocytes # (A) 0.1 k/uL (0-1.0); Monocytes % (A) 2 %; Neutrophils # (A) 3.2 k/uL (1.3-7.7); Neutrophils % (A) 79 %; Platelet Count 266 k/uL (150-450); RDW 15.7 % (11.5-15.5); WBC 4.1 k/uL (3.8-10.6)
[2019-08-31 04:00] LABS: INR 0.9 (<1.2); Partial Thromboplastin Time 24.7 sec (22.0-30.0); Prothrombin Time 9.3 sec (9.0-12.0)
[2019-08-31 04:13] LABS: ALT 7 U/L (4-34); AST 18 U/L (14-36); African American GFR (CKD) >90 (>60 ml/min/1.73 sqM); Albumin 3.9 g/dL (3.5-5.0); Alkaline Phosphatase 72 U/L (38-126); Anion Gap 8 mmol/L; Blood Urea Nitrogen 15 mg/dL (7-17); Calcium 9.3 mg/dL (8.4-10.2); Carbon Dioxide 23 mmol/L (22-30); Chloride 104 mmol/L (98-107); Glucose 93 mg/dL (74-99); Non-African American GFR(CKD) >90 (>60 ml/min/1.73 sqM); Potassium 4.7 mmol/L (3.5-5.1); Sodium 135 mmol/L (137-145); Total Bilirubin 0.4 mg/dL (0.2-1.3); Total Protein 6.9 g/dL (6.3-8.2)
[2019-08-31] MEDS ORDERED: ACETAMINOPHEN TAB 325 MG TAB PO STA (04:13)
[2019-08-31 04:17] VITALS: TEMP 101.4
--- NOTE | 2019-08-31 04:40 | XR ---
EXAMINATION TYPE: XR chest 2V DATE OF EXAM: 08/31/2019 COMPARISON: 06/23/2019 HISTORY: Lymphoma TECHNIQUE: 2 views FINDINGS: There is right central venous catheter with tip in the superior vena cava. Heart and medias tinum are fairly normal. There is no pleural effusion. Lungs are clear of infiltrate. IMPRESSION: No acute lung disease. There is significant clearing of the left side mediastinal adenopa thy compared to last exam.
[2019-08-31 06:42] VITALS: BP 126/89; PULSE 115; RESP 18
== END 2019-08-31 06:45 | disposition short-term general hospital (02) ==
LOC: EC 01:24
DX: C81.92 Hodgkin lymphoma, unspecified, intrathoracic lymph nodes (principal); R00.0 Tachycardia, unspecified; R01.1 Cardiac murmur, unspecified; Z79.3 Long term (current) use of hormonal contraceptives; Z79.899 Other long term (current) drug therapy; Z92.21 Personal history of antineoplastic chemotherapy; Z95.828 Presence of other vascular implants and grafts; Z82.49 Family history of ischemic heart disease and other diseases of the circulatory system
CPT/HCPCS: 36415; 93005; 80053; 83605; 85025; 85610; 85730; 81003; 87040; 87086; 87502; 71046; 99284; 96365; J0692

== ENCOUNTER 2019-09-22 20:53 | Emergency (ER) | payer BC ==
[2019-09-22 22:12] LABS: HCT 30.5 % (34.0-46.0); HGB 10.5 gm/dL (11.4-16.0); MCH 27.8 pg (25.0-35.0); MCHC 34.4 g/dL (31.0-37.0); MCV 80.8 fL (80.0-100.0); Mean Platelet Volume 7.5; RBC 3.77 m/uL (3.80-5.40); RDW 15.2 % (11.5-15.5)
--- NOTE | 2019-09-22 22:13 | XR ---
EXAMINATION TYPE: XR chest 2V DATE OF EXAM: 09/22/2019 COMPARISON: 08/31/2019 HISTORY: Fever TECHNIQUE: FINDINGS: Heart and mediastinum are normal. Lungs are clear. Diaphragm is normal. Bony thorax appears intact. Pulmonary vascularity is normal. IMPRESSION: Normal chest. No change.
[2019-09-22 22:15] LABS: ALT 13 U/L (4-34); AST 15 U/L (14-36); African American GFR (CKD) >90 (>60 ml/min/1.73 sqM); Albumin 3.6 g/dL (3.5-5.0); Alkaline Phosphatase 50 U/L (38-126); Anion Gap 7 mmol/L; Blood Urea Nitrogen 25 mg/dL (7-17); Calcium 8.7 mg/dL (8.4-10.2); Carbon Dioxide 28 mmol/L (22-30); Chloride 101 mmol/L (98-107); Glucose 110 mg/dL (74-99); Non-African American GFR(CKD) >90 (>60 ml/min/1.73 sqM); Sodium 136 mmol/L (137-145); Total Bilirubin 0.3 mg/dL (0.2-1.3); Total Protein 6.3 g/dL (6.3-8.2)
[2019-09-22 22:17] LABS: INR 0.9 (<1.2); Partial Thromboplastin Time 23.1 sec (22.0-30.0); Prothrombin Time 9.9 sec (9.0-12.0)
[2019-09-22 22:18] LABS: HCG,Qualitative Serum Not Detected
[2019-09-22 22:26] LABS: WBC 0.4 k/uL (3.8-10.6)
[2019-09-22 22:45] LABS: Anisocytosis (M) Present; Hypochromasia (M) Present
[2019-09-22 22:47] LABS: Platelet Count 79 k/uL (150-450)
--- NOTE | 2019-09-22 23:30 | US ---
EXAMINATION TYPE: US venous doppler duplex UE RT DATE OF EXAM: 09/22/2019 COMPARISON: NONE CLINICAL HISTORY: picc line clot. PICC line clot per order. Hx Hodgkin's lymphoma. No hx of DVT. SIDE PERFORMED: Right Right Arm: There appears to be echogenic material surrounding PICC line and trickle flow within the s ubclavian vein. Trickle or no flow is seen within the axillary and basilic veins. Axillary and basili c veins do not compress completely. IMPRESSION: There is evidence of deep vein thrombosis around the catheter in the axillary and subclavian vein. Th ere is thrombus in the superficial basilic vein.
[2019-09-22 23:31] VITALS: PULSE 79; RESP 18
--- NOTE | 2019-09-23 00:33 | CT ---
EXAMINATION TYPE: CT angio chest DATE OF EXAM: 09/23/2019 COMPARISON: 06/23/2019 HISTORY: Blood clot in PICC line CT DLP: 418.8 mGycm Automated exposure control for dose reduction was used. CONTRAST: Performed with IV Contrast, patient injected with 60 mL of Isovue 370. Multiple axial sections were obtained from the thoracic inlet to the diaphragm with intravenous contr ast. There are 3-D post processed images. Heart appears normal. There is no pericardial effusion. The lungs are clear of infiltrate. There is n o pleural effusion. There are no hilar masses. There is mild increased anterior mediastinal density that measures 4 x 1.5 cm. Thoracic aorta is intact. There is no aneurysm or dissection. There is normal contrast opacification of the pulmonary arteries. There are no filling defects. The bony thorax is intact. IMPRESSION: No evidence of pulmonary embolism. There is significant decrease in the mediastinal adenopathy compar ed to last exam. There is some residual enlarged anterior mediastinal lymph nodes.
[2019-09-23] MEDS ORDERED: ENOXAPARIN 100 MG/ML SYRINGE SQ STA (01:22)
--- NOTE | 2019-09-23 01:22 | ED ---
General Adult HPI - General Chief complaint: Skin/Abscess/Foreign Body Stated complaint: Possible Blood Clot in picc line Time Seen by Provider: 09/22/19 21:00 Source: patient Mode of arrival: ambulatory Limitations: no limitations - History of Present Illness Initial comments: The patient is a 19-year-old female with past medical history of Hodgkin's l ymphoma who presents emergency Department with reported right upper extremity pain and discoloration. The patient does have a PICC line in this extremity. Reported that her symptoms started yesterday. She denies any fevers or chills. No trauma to the site. She is on a q3 week cycle of chemo. States she received it Thursday of this week. They did have difficulty drawing blood from the line. They were able to flush it and she received her treatment. She called Dr. Bro who is her oncologist at [facility]. He did instruct her to come into the emergency room for further evaluation. He does give a call to the emergency department. Reports that he is requesting laboratory studies, chest x-ray and ultrasound of the right upper extremity. There are no alleviating, precipitating or modifying factors - Related Data Home Medications Medication Instructions Recorded Confirmed Famotidine [Pepcid] 20 mg PO DAILY 07/19/19 09/06/19 Norgestimate-Ethinyl Estradiol 1 tab PO DAILY 07/19/19 09/06/19 [Sprintec 28 Day Tablet] Ondansetron HCl [Zofran] 8 mg PO TID 07/19/19 09/06/19 Promethazine [Phenergan] 25 mg PO Q6HR 07/19/19 09/06/19 Sulfamethox-Tmp 800-160Mg [Bactrim 1 tab PO Q12HR 07/19/19 09/06/19 DS 800-160 mg] Allergies Allergy/AdvReac Type Severity Reaction Status Date / Time No Known Allergies Allergy Verified 09/22/19 21:00 Review of Systems ROS Statement: Those systems with pertinent positive or pertinent negative responses have been documented in the HPI. ROS Other: All systems not noted in ROS Statement are negative. Past Medical History Past Medical History: Cancer Additional Past Medical History / Comment(s): HODGKIN LYMPHOMA History of Any Multi-Drug Resistant Organisms: None Reported Past Surgical History: Tubal Ligation Additional Past Surgical History / Comment(s): oral surgery. RIGHT TUBAL LIGATION. Past Anesthesia/Blood Transfusion Reactions: No Reported Reaction Past Psychological History: No Psychological Hx Reported Smoking Status: Never smoker Past Alcohol Use History: None Reported Past Drug Use History: None Reported - Past Family History Mother Family Medical History: No Reported History Father Family Medical History: Hypertension General Exam Limitations: no limitations Head exam: Present: atraumatic, normocephalic, normal inspection Eye exam: Present: normal appearance, PERRL, EOMI. Absent: scleral icterus, conjunctival injection, periorbital swelling ENT exam: Present: normal exam, mucous membranes moist Neck exam: Present: normal inspection. Absent: tenderness, meningismus, lymphadenopathy Respiratory exam: Present: normal lung sounds bilaterally. Absent: respiratory distress, wheezes, rales, rhonchi, stridor Cardiovascular Exam: Present: regular rate, normal rhythm, normal heart sounds. Absent: systolic murmur, diastolic murmur, rubs, gallop, clicks GI/Abdominal exam: Present: soft, normal bowel sounds. Absent: distended, tenderness, guarding, rebound, rigid Extremities exam: Present: other (PICC line in place of the right upper extremity. The extremity overall is swollen with a slight purple discoloration. 2+ radial and ulnar pulses bilaterally. Compartments are soft. No fluctuance around the site. No signs of pustular drainage or cellulitic changes.) Neurological exam: Present: alert, oriented X3, CN II-XII intact Psychiatric exam: Present: normal affect, normal mood Course Vital Signs 09/22/19 09/22/19 09/23/19 20:59 23:30 01:23 Temperature 98.1 F 97.6 F 97.8 F Pulse Rate 97 79 79 Respiratory 16 18 18 Rate Blood Pressure 115/78 130/65 124/66 O2 Sat by Pulse 98 97 98 Oximetry Medical Decision Making - Medical Decision Making Upon arrival the patient was placed into room 20. A thorough history and physical exam was performed. Laboratory studies were conducted and the patient went for chest x-ray. She did have a Doppler performed of her right upper extremity. Laboratory studies demonstrate a pancytopenia. White blood cell count of 0.4, hemoglobin 10.5 and platelet count of 79. Urine hCG is negative. CT of the patient's chest demonstrates no evidence of pulmonary embolism. Significant decrease in the mediastinal adenopathy compared to last exam. Venous Doppler of the right upper extremity demonstrates evidence of DVT around the catheter and the axillary and subclavian vein. Thrombus in the superficial basilic vein. Chest x-ray demonstrates no acute process. I did discuss the case with Dr. Bro and the family. Dr. Bro is able to facilitate a bed at [facility]. The patient will be going to [address] [place] [address]. The family is requesting to go by private vehicle. She was given a 1 mg/kg dose of Lovenox. She was then transferred there in stable condition - Lab Data Result diagrams: 09/22/19 21:59 09/22/19 21:59 Lab Results 09/22/19 09/22/19 09/22/19 Range/Units 21:59 21:59 21:59 WBC 0.4 L* (3.8-10.6) k/uL RBC 3.77 L (3.80-5.40) m/uL Hgb 10.5 L (11.4-16.0) gm/dL Hct 30.5 L (34.0-46.0) % MCV 80.8 (80.0-100.0) fL MCH 27.8 (25.0-35.0) pg MCHC 34.4 (31.0-37.0) g/dL RDW 15.2 (11.5-15.5) % Plt Count 79 L D (150-450) k/uL Neutrophils # GLOVE BRUSHER Differential Comment P Manual Slide Review Performed Hypochromasia (manual) Present Anisocytosis (manual) Present PT 9.9 (9.0-12.0) sec INR 0.9 (<1.2) APTT 23.1 (22.0-30.0) sec Sodium 136 L (137-145) mmol/L Potassium 4.0 (3.5-5.1) mmol/L Chloride 101 (98-107) mmol/L Carbon Dioxide 28 (22-30) mmol/L Anion Gap 7 mmol/L BUN 25 H (7-17) mg/dL Creatinine 0.60 (0.52-1.04) mg/dL Est GFR (CKD-EPI)AfAm >90 (>60 ml/min/1.73 sqM) Est GFR (CKD-EPI)NonAf >90 (>60 ml/min/1.73 sqM) Glucose 110 H (74-99) mg/dL Calcium 8.7 (8.4-10.2) mg/dL Total Bilirubin 0.3 (0.2-1.3) mg/dL AST 15 (14-36) U/L ALT 13 (4-34) U/L Alkaline Phosphatase 50 (38-126) U/L Total Protein 6.3 (6.3-8.2) g/dL Albumin 3.6 (3.5-5.0) g/dL HCG, Qual Not Detected Disposition Clinical Impression: Hodgkin lymphoma, Deep vein thrombosis of right upper extremity Disposition: OTHER INSTITUTION NOT DEFINED Condition: Stable Is patient prescribed a controlled substance at d/c from ED?: No Referrals: Lawrence Parekh MD [Primary Care Provider] - 1-2 days Time of Disposition: :32 - Out of Hospital Transfer - Req. Specs Out of Hospital Transfer - Requested Specifics: Other Non-Acute ([facility] - )
[2019-09-23 01:25] VITALS: BP 124/66; TEMP 97.8
== END 2019-09-23 02:12 | disposition other institution (70) ==
LOC: EC 20:53
DX: I82.621 Acute embolism and thrombosis of deep veins of right upper extremity (principal); D61.818 Other pancytopenia; R59.0 Localized enlarged lymph nodes; Z79.899 Other long term (current) drug therapy; Z85.71 Personal history of Hodgkin lymphoma; Z95.828 Presence of other vascular implants and grafts; Z92.21 Personal history of antineoplastic chemotherapy
CPT/HCPCS: 36415; 80053; 85025; 85610; 85730; 84703; 71046; 93971; 71275; 99285; J1650; Q9967

== ENCOUNTER 2019-11-29 01:48 | Emergency (ER) | payer BC ==
[2019-11-29 02:01] VITALS: TEMP 98.2
[2019-11-29] MEDS ORDERED: MORPHINE SULFATE 4 MG/ML SYRINGE IVP STA ×2 (02:21→04:19)
[2019-11-29] MEDS ORDERED: SODIUM CHLORIDE 0.9% 500 ML 500 ML IV STA (02:21)
[2019-11-29] MEDS ORDERED: SODIUM CHLORIDE 0.9% 1,000 ML IV STA (02:25)
--- NOTE | 2019-11-29 02:40 | ED ---
General Adult HPI - General Source: patient Mode of arrival: ambulatory Limitations: no limitations <Chris Moore - Last Filed: 11/29/19 02:49> <Duane Lozada - Last Filed: 11/29/19 07:06> - General Chief complaint: Extremity Problem,Nontraumatic Stated complaint: Leg pain Time Seen by Provider: 11/29/19 02:03 - History of Present Illness Initial comments: Patient is a 19-year-old female with history of Hodgkin's lipoma presenting to emergency Department with chief complaint of leg pain. Patient reports she recently finished her chemotherapy treatment and at the end receives a shot of nuelasta which causes her white blood count to drastically increase and resulting of bone marrow pain. Patient reports she also expresses mucositis due to the treatment for which she was treated at the [facility] and discharged this morning. Other reports the patient had not developed bilateral lower extremity edema which is typical for her after she receives the shot. Patient reports it's a sharp pain starting at the hips and radiating distally. Mother states the patient is typically brought to the ED and given analgesia until the pain resolves. Mother states the [facility] pediatric oncology team would like to speak before any treatment is initiated. Mother states the patient typically receives 1000 mg of Tylenol every 4, oxycodone every 4. Patient is typically given a morphine pump if she is admitted to the hospital. (Chris Moore) - Related Data Home Medications Medication Instructions Recorded Confirmed Famotidine [Pepcid] 20 mg PO DAILY 07/19/19 11/03/19 Ondansetron HCl [Zofran] 8 mg PO TID 07/19/19 11/03/19 Promethazine [Phenergan] 25 mg PO Q6HR 07/19/19 11/03/19 Sulfamethox-Tmp 800-160Mg [Bactrim 1 tab PO Q12HR 07/19/19 11/03/19 DS 800-160 mg] Apixaban [Eliquis] 5 mg PO BID 11/03/19 11/03/19 oxyCODONE HCL [OxyCONTIN] 1 tab PO DIRECTED PRN 11/03/19 11/03/19 predniSONE 42.5 mg PO DAILY 11/03/19 11/03/19 Allergies Allergy/AdvReac Type Severity Reaction Status Date / Time No Known Allergies Allergy Verified 11/29/19 02:01 Review of Systems ROS Other: All systems not noted in ROS Statement are negative. <Chris Moore - Last Filed: 11/29/19 02:49> ROS Other: All systems not noted in ROS Statement are negative. <Duane Lozada Blayne - Last Filed: 11/29/19 07:06> ROS Statement: Those systems with pertinent positive or pertinent negative responses have been documented in the HPI. Past Medical History Past Medical History: Cancer Additional Past Medical History / Comment(s): HODGKIN LYMPHOMA History of Any Multi-Drug Resistant Organisms: None Reported Past Surgical History: Tubal Ligation Additional Past Surgical History / Comment(s): oral surgery. RIGHT TUBAL LIGATION. Past Anesthesia/Blood Transfusion Reactions: No Reported Reaction Past Psychological History: No Psychological Hx Reported Smoking Status: Never smoker - Past Family History Mother Family Medical History: No Reported History Father Family Medical History: Hypertension <Chris Moore - Last Filed: 11/29/19 02:49> General Exam Limitations: no limitations General appearance: alert, in distress Head exam: Present: atraumatic, normocephalic, normal inspection Eye exam: Present: normal appearance, PERRL, EOMI Pupils: Present: normal accommodation ENT exam: Present: normal exam Neck exam: Present: normal inspection, full ROM Respiratory exam: Present: normal lung sounds bilaterally Cardiovascular Exam: Present: regular rate, normal rhythm, normal heart sounds Extremities exam: Present: normal inspection, full ROM Back exam: Present: normal inspection, full ROM Neurological exam: Present: alert Psychiatric exam: Present: normal affect, normal mood Skin exam: Present: warm, dry, intact, normal color <Chris Moore - Last Filed: 11/29/19 02:49> Course Vital Signs 11/29/19 11/29/19 11/29/19 01:56 05:38 05:39 Temperature 98.2 F Pulse Rate 155 H 102 H Respiratory 18 Rate Blood Pressure 95/56 131/73 O2 Sat by Pulse 97 97 Oximetry 11/29/19 11/29/19 11/29/19 05:40 06:00 06:20 Temperature Pulse Rate Respiratory Rate Blood Pressure 131/73 130/80 132/73 O2 Sat by Pulse 96 96 95 Oximetry 11/29/19 06:40 Temperature Pulse Rate Respiratory Rate Blood Pressure 137/78 O2 Sat by Pulse 96 Oximetry Medical Decision Making <Chris Moore - Last Filed: 11/29/19 02:49> - Lab Data Result diagrams: 11/29/19 03:26 11/29/19 03:26 <Duane Lozada - Last Filed: 11/29/19 07:06> - Medical Decision Making Patient is a 19-year-old female with history of Hodgkin's lymphoma presenting to the emergency department with chief complaint of leg pain. I spoke with her pediatric oncologist from the [facility] Dr. Carballo who suggested a provide analgesia to the patient and did not recommend transfer or admission. CBC and CMP pending. Patient is initially hypotensive and tachycardic. Patient given 1 L of bolus fluids. Patient given 4 mg of morphine. At this time patient care will be transferred to . (Chris Moore) Patient has been reevaluated on multiple points throughout her ER stay. Continuing to complain of persistent pain despite multiple doses of opiate pain medication. She has significant laboratory abnormalities including leukocytosis, anemia which is stable, and thrombocytopenia. Her covering oncologist did recommend symptomatic treatment. Patient has some improvement in pain however she does not feel so her pain will be able to be managed at home. I had planned on admitting this patient however she declines admission and prefers to manage her pain at home. I discussed case with Dr. Griffin who is agreeable with discharge and close outpatient follow-up. Patient will return with worsening or changing symptoms. (Duane Lozada) - Lab Data Lab Results 11/29/19 11/29/19 Range/Units 03:26 03:26 WBC 58.6 H* (3.8-10.6) k/uL RBC 3.28 L (3.80-5.40) m/uL Hgb 10.0 L (11.4-16.0) gm/dL Hct 28.7 L (34.0-46.0) % MCV 87.3 (80.0-100.0) fL MCH 30.4 (25.0-35.0) pg MCHC 34.9 (31.0-37.0) g/dL RDW 15.0 (11.5-15.5) % Plt Count 49 L D (150-450) k/uL Sodium 137 (137-145) mmol/L Potassium 4.6 (3.5-5.1) mmol/L Chloride 101 (98-107) mmol/L Carbon Dioxide 26 (22-30) mmol/L Anion Gap 10 mmol/L BUN 25 H (7-17) mg/dL Creatinine 0.74 (0.52-1.04) mg/dL Est GFR (CKD-EPI)AfAm >90 (>60 ml/min/1.73 sqM) Est GFR (CKD-EPI)NonAf >90 (>60 ml/min/1.73 sqM) Glucose 126 H (74-99) mg/dL Calcium 9.0 (8.4-10.2) mg/dL Total Bilirubin 0.5 (0.2-1.3) mg/dL AST 76 H (14-36) U/L ALT 21 (4-34) U/L Alkaline Phosphatase 194 H (38-126) U/L Total Protein 6.2 L (6.3-8.2) g/dL Albumin 3.9 (3.5-5.0) g/dL Disposition <Chris Moore - Last Filed: 11/29/19 02:49> Is patient prescribed a controlled substance at d/c from ED?: No Time of Disposition: 07:06 Decision Date: 11/29/19 Decision Time: 06:49 <Duane Lozada - Last Filed: 11/29/19 07:06> Clinical Impression: Anemia, Hodgkin lymphoma, Intractable pain, Leukocytosis Disposition: HOME SELF-CARE Condition: Fair Instructions (If sedation given, give patient instructions): Chronic Pain (ED), Hodgkin Lymphoma (ED) Referrals: Lawrence Parekh MD [Primary Care Provider] - 1-2 days
[2019-11-29 03:44] LABS: ALT 21 U/L (4-34); AST 76 U/L (14-36); African American GFR (CKD) >90 (>60 ml/min/1.73 sqM); Albumin 3.9 g/dL (3.5-5.0); Alkaline Phosphatase 194 U/L (38-126); Anion Gap 10 mmol/L; Blood Urea Nitrogen 25 mg/dL (7-17); Carbon Dioxide 26 mmol/L (22-30); Chloride 101 mmol/L (98-107); Glucose 126 mg/dL (74-99); Non-African American GFR(CKD) >90 (>60 ml/min/1.73 sqM); Potassium 4.6 mmol/L (3.5-5.1); Sodium 137 mmol/L (137-145); Total Bilirubin 0.5 mg/dL (0.2-1.3); Total Protein 6.2 g/dL (6.3-8.2)
[2019-11-29 03:45] LABS: HCT 28.7 % (34.0-46.0); MCH 30.4 pg (25.0-35.0); MCHC 34.9 g/dL (31.0-37.0); MCV 87.3 fL (80.0-100.0); Mean Platelet Volume 9.9; RBC 3.28 m/uL (3.80-5.40)
[2019-11-29] MEDS ORDERED: HYDROmorphone 1 MG/ML 1 ML SYRINGE IVP STA (05:19)
[2019-11-29] MEDS ORDERED: HYDROmorphone 0.5 MG/0.5 ML SYRINGE IVP PRN (06:45)
[2019-11-29] MEDS ORDERED: NALOXONE 0.4 MG/ML 1 ML VIAL IV PRN (06:45)
[2019-11-29] MEDS ORDERED: SODIUM CHLORIDE 0.9% 1,000 ML IV SCH (06:45)
[2019-11-29] MEDS ORDERED: ACETAMINOPHEN TAB 325 MG TAB PO PRN (06:45)
[2019-11-29] MEDS ORDERED: HYDROmorphone 1 MG/ML 1 ML SYRINGE IVP PRN (06:45)
[2019-11-29 07:00] VITALS: BP 137/78
[2019-11-29 07:22] LABS: Band Neutrophils % 15 %; Eosinophils # (M) 0.57 k/uL (0-0.7); Lymphocytes # (M) 2.28 k/uL (1.0-4.8); Metamyelocytes # (M) 5.69 k/uL (0); Metamyelocytes % 10 %; Monocytes # (M) 10.24 k/uL (0-1.0); Myelocytes # (M) 1.71 k/uL (0); Myelocytes % 3 %; Neutrophils % (M) 52 %; Nucleated Red Blood Cells 3 /100 WBC (0-0); Total Cells Counted 200; WBC 56.9 k/uL (3.8-10.6)
[2019-11-29 07:25] LABS: Polychromasia Present
[2019-11-29 07:26] LABS: Toxic Granulation Present
[2019-11-29 07:29] LABS: Platelet Count 49 k/uL (150-450); Poikilocytosis (M) Present
[2019-11-29 08:27] VITALS: RESP 20
[2019-11-29 08:31] VITALS: PULSE 99
== END 2019-11-29 08:07 | disposition home or self-care (01) ==
LOC: EC 01:48 → 5NMEDONC 06:45 → UNDOADMIN 06:45 → UNDODISIN 08:05
DX: C81.90 Hodgkin lymphoma, unspecified, unspecified site (principal); I95.9 Hypotension, unspecified; R00.0 Tachycardia, unspecified; D72.829 Elevated white blood cell count, unspecified; D63.0 Anemia in neoplastic disease; D69.6 Thrombocytopenia, unspecified; M79.675 Pain in left toe(s); M79.674 Pain in right toe(s); M25.552 Pain in left hip; M25.551 Pain in right hip; Z92.21 Personal history of antineoplastic chemotherapy
CPT/HCPCS: 36415; 80053; 85025; 96361; 96374; 96375; 96376; 99284

== ENCOUNTER 2019-11-30 18:33 | Inpatient (IN) | payer BC ==
[2019-11-30] MEDS ORDERED: SODIUM CHLORIDE 0.9% 1,000 ML IV ONE (18:49)
[2019-11-30] MEDS ORDERED: HYDROmorphone 1 MG/ML 1 ML SYRINGE IVP STA ×2 (18:49→20:20)
[2019-11-30] MEDS ORDERED: ONDANSETRON 4 MG/2 ML VIAL IVP STA (18:49)
--- NOTE | 2019-11-30 19:40 | ED ---
General Adult HPI - General Chief complaint: Recheck/Abnormal Lab/Rx Stated complaint: Pain, Cancer pt Time Seen by Provider: 11/30/19 18:44 Source: patient Mode of arrival: wheelchair Limitations: no limitations - History of Present Illness Initial comments: 19-year-old female patient with past medical history significant for non- Hodgkin's lymphoma presents to the emergency department today for evaluation of pain to the bilateral lower extremities. States she is having significant pain to both knees and ankles. Patient states that she has been taking her home oxycodone without relief. Last dose was 10 mg at 3 PM. Patient states that she has been having this pain since Thursday. She was released from [facility] on Thursday after a stay for mucositis of the rectum. She states she is having some swelling of the lower extremities. She denies any redness or calf pain. Denies any fever or chills. Patient denies any recent rash, cough, shortness of breath, chest pain, abdominal pain, nausea, vomiting, diarrhea, constipation, back pain, numbness, tingling, dizziness, weakness, hematuria, dysuria, urinary urgency, urinary frequency, headache, visual changes, or any other complaints. - Related Data Home Medications Medication Instructions Recorded Confirmed Docusate [Colace] 100 mg PO BID 11/30/19 11/30/19 Famotidine [Pepcid] 20 mg PO BID 11/30/19 11/30/19 Norethindrone 5mg 5 - 10 mg PO DIRECTED 11/30/19 11/30/19 oxyCODONE HCL [OxyIR] 5 mg PO Q2H PRN 11/30/19 11/30/19 oxyCODONE HCL [oxyCODONE HCL (IR)] 10 mg PO Q6H PRN 11/30/19 11/30/19 Allergies Allergy/AdvReac Type Severity Reaction Status Date / Time No Known Allergies Allergy Verified 11/30/19 19:54 Review of Systems ROS Statement: Those systems with pertinent positive or pertinent negative responses have been documented in the HPI. ROS Other: All systems not noted in ROS Statement are negative. Past Medical History Past Medical History: Cancer Additional Past Medical History / Comment(s): HODGKIN LYMPHOMA History of Any Multi-Drug Resistant Organisms: None Reported Past Surgical History: Tubal Ligation Additional Past Surgical History / Comment(s): oral surgery. RIGHT TUBAL LIGATION. Past Anesthesia/Blood Transfusion Reactions: No Reported Reaction Past Psychological History: No Psychological Hx Reported Smoking Status: Never smoker Past Alcohol Use History: None Reported Past Drug Use History: None Reported - Past Family History Mother Family Medical History: No Reported History Father Family Medical History: Hypertension General Exam Limitations: no limitations General appearance: alert, in no apparent distress, other (This is a well- developed, well-nourished adult female patient in no acute distress. Vital signs upon presentation are temperature 98.4F, pulse 134, respirations 18, blood pressure 116/83, pulse ox 100% on room air.) Respiratory exam: Present: normal lung sounds bilaterally. Absent: respiratory distress, wheezes, rales, rhonchi, stridor Cardiovascular Exam: Present: regular rate, normal rhythm, normal heart sounds. Absent: systolic murmur, diastolic murmur, rubs, gallop, clicks GI/Abdominal exam: Present: soft, normal bowel sounds. Absent: distended, tenderness, guarding, rebound, rigid Extremities exam: Present: full ROM, normal capillary refill, other (There is mild generalized swelling surrounding the area ankles and feet. Skin is pink, warm, dry. Cap refills less than 3 seconds. Pedal and posttibial pulses are 2+ and equal bilaterally. No erythema or Tenderness noted.). Absent: normal inspection, tenderness, pedal edema, joint swelling, calf tenderness Neurological exam: Present: alert, oriented X3, CN II-XII intact Psychiatric exam: Present: normal affect, normal mood Skin exam: Present: warm, dry, intact, normal color. Absent: rash Course Vital Signs 11/30/19 11/30/19 11/30/19 18:39 19:50 20:39 Temperature 98.4 F 99.0 F Pulse Rate 134 H 104 H 103 H Respiratory 18 18 18 Rate Blood Pressure 116/83 120/82 120/64 O2 Sat by Pulse 100 98 97 Oximetry 11/30/19 21:10 Temperature Pulse Rate 102 H Respiratory 18 Rate Blood Pressure 117/67 O2 Sat by Pulse 99 Oximetry Medical Decision Making - Medical Decision Making 19-year-old female patient presents to the emergency department today for evaluation of leg pain. Patient did recently have a treatment for her Hodgkin's lymphoma which increased her white blood cell production. Her oncologist at [facility] believes this is the cause of her pain. Physical examination reveals mild soft tissue swelling surrounding the bilateral ankles. No redness or tenderness over the calves. Neurovascular status is intact. We did draw labs and showed white blood cell count of 54. Hemoglobin did have a drop from 10 yesterday to 8 today. Patient will be admitted for pain management. We will repeat hemoglobin every 6 hours. She'll be admitted to Dr. Morejon. Dr. Kaminski was consulted. - Lab Data Result diagrams: 11/30/19 19:35 11/30/19 19:35 Lab Results 11/30/19 11/30/19 Range/Units 19:35 19:35 WBC 53.6 H* (3.8-10.6) k/uL RBC 2.88 L (3.80-5.40) m/uL Hgb 8.5 L D (11.4-16.0) gm/dL Hct 25.1 L (34.0-46.0) % MCV 87.4 (80.0-100.0) fL MCH 29.6 (25.0-35.0) pg MCHC 33.9 (31.0-37.0) g/dL RDW 16.0 H (11.5-15.5) % Plt Count 53 L (150-450) k/uL Neutrophils % (Manual) 58 % Band Neutrophils % 13 % Lymphocytes % (Manual) 2 % Monocytes % (Manual) 7 % Metamyelocytes % 10 % Myelocytes % 10 % Blast Cells % 2 H* % Neutrophils # (Manual) 38.00 H (1.3-7.7) k/uL Lymphocytes # (Manual) 1.07 (1.0-4.8) k/uL Monocytes # (Manual) 3.75 H (0-1.0) k/uL Metamyelocytes # (Man) 5.36 H (0) k/uL Myelocytes # (Manual) 5.36 H (0) k/uL Blast Cells # (Man) 1.07 H (0) k/uL Nucleated RBCs 2 H (0-0) /100 WBC Manual Slide Review Performed Toxic Granulation Present Polychromasia Present Anisocytosis Slight Anisocytosis (manual) Present Sodium 139 (137-145) mmol/L Potassium 3.8 (3.5-5.1) mmol/L Chloride 104 (98-107) mmol/L Carbon Dioxide 31 H (22-30) mmol/L Anion Gap 4 mmol/L BUN 23 H (7-17) mg/dL Creatinine 0.85 (0.52-1.04) mg/dL Est GFR (CKD-EPI)AfAm >90 (>60 ml/min/1.73 sqM) Est GFR (CKD-EPI)NonAf >90 (>60 ml/min/1.73 sqM) Glucose 111 H (74-99) mg/dL Calcium 8.6 (8.4-10.2) mg/dL Total Bilirubin 0.4 (0.2-1.3) mg/dL AST 40 H (14-36) U/L ALT 22 (4-34) U/L Alkaline Phosphatase 185 H (38-126) U/L Creatine Kinase 21 L (30-135) U/L Total Protein 5.9 L (6.3-8.2) g/dL Albumin 3.5 (3.5-5.0) g/dL Disposition Clinical Impression: Intractable pain, Leg pain, History of Hodgkin's lymphoma Disposition: ADMITTED IP TO THIS [facility] Condition: Serious Decision to Admit Reason: Admit from EC Decision Date: 11/30/19 Decision Time: 20:43
[2019-11-30 20:03] LABS: ALT 22 U/L (4-34); AST 40 U/L (14-36); African American GFR (CKD) >90 (>60 ml/min/1.73 sqM); Albumin 3.5 g/dL (3.5-5.0); Alkaline Phosphatase 185 U/L (38-126); Anion Gap 4 mmol/L; Anisocytosis Slight; Blood Urea Nitrogen 23 mg/dL (7-17); Calcium 8.6 mg/dL (8.4-10.2); Carbon Dioxide 31 mmol/L (22-30); Chloride 104 mmol/L (98-107); Creatine Kinase 21 U/L (30-135); Glucose 111 mg/dL (74-99); HCT 25.1 % (34.0-46.0); MCH 29.6 pg (25.0-35.0); MCHC 33.9 g/dL (31.0-37.0); MCV 87.4 fL (80.0-100.0); Mean Platelet Volume 10.1; Non-African American GFR(CKD) >90 (>60 ml/min/1.73 sqM); Platelet Count 53 k/uL (150-450); Potassium 3.8 mmol/L (3.5-5.1); RBC 2.88 m/uL (3.80-5.40); Sodium 139 mmol/L (137-145); Total Bilirubin 0.4 mg/dL (0.2-1.3); Total Protein 5.9 g/dL (6.3-8.2)
[2019-11-30 20:04] LABS: HGB 8.5 gm/dL (11.4-16.0)
[2019-11-30] MEDS ORDERED: diphenhydrAMINE 50 MG/ML 1 ML VIAL IVP STA (20:20)
[2019-11-30] MEDS ORDERED: ONDANSETRON 4 MG/2 ML VIAL IVP PRN (20:38)
[2019-11-30] MEDS ORDERED: ACETAMINOPHEN TAB 325 MG TAB PO PRN (20:38)
[2019-11-30] MEDS ORDERED: NALOXONE 0.4 MG/ML 1 ML VIAL IV PRN (20:38)
[2019-11-30 20:56] LABS: Anisocytosis (M) Present; Band Neutrophils % 13 %; Blast Cells # (M) 1.07 k/uL (0); Lymphocytes # (M) 1.07 k/uL (1.0-4.8); Metamyelocytes # (M) 5.36 k/uL (0); Metamyelocytes % 10 %; Monocytes # (M) 3.75 k/uL (0-1.0); Myelocytes # (M) 5.36 k/uL (0); Myelocytes % 10 %; Neutrophils % (M) 58 %; Nucleated Red Blood Cells 2 /100 WBC (0-0); Polychromasia Present; Total Cells Counted 200; WBC 53.6 k/uL (3.8-10.6)
[2019-11-30 20:57] LABS: Toxic Granulation Present
[2019-11-30] MEDS: HYDROmorphone 1 MG/ML 1 ML SYRINGE IVP PRN (23:55)
[2019-12-01 02:56] LABS: HCT 24.3 % (34.0-46.0); MCHC 32.9 g/dL (31.0-37.0); MCV 87.9 fL (80.0-100.0); Mean Platelet Volume 8.5; RBC 2.76 m/uL (3.80-5.40); RDW 15.9 % (11.5-15.5)
[2019-12-01 03:02] LABS: WBC 59.7 k/uL (3.8-10.6)
[2019-12-01 03:03] LABS: Platelet Count 52 k/uL (150-450)
[2019-12-01] MEDS: diphenhydrAMINE 50 MG/ML 1 ML VIAL IVP PRN ×2 (03:20→09:50)
[2019-12-01] MEDS: HYDROmorphone 1 MG/ML 1 ML SYRINGE IVP PRN ×3 (03:20→09:51)
[2019-12-01 09:01] LABS: Anisocytosis Slight; HCT 24.9 % (34.0-46.0); HGB 8.2 gm/dL (11.4-16.0); MCHC 32.8 g/dL (31.0-37.0); MCV 88.4 fL (80.0-100.0); Mean Platelet Volume 9.2; RBC 2.81 m/uL (3.80-5.40); RDW 16.1 % (11.5-15.5)
[2019-12-01 09:21] LABS: WBC 54.4 k/uL (3.8-10.6)
[2019-12-01 09:22] LABS: Platelet Count 53 k/uL (150-450)
[2019-12-01] MEDS ORDERED: DOCUSATE 100 MG CAP PO SCH (11:00)
[2019-12-01] MEDS ORDERED: HYDROmorphone 0.5 MG/0.5 ML SYRINGE IVP STA (11:06)
--- NOTE | 2019-12-01 11:33 | P.CONS ---
History of Present Illness - Reason for Consult Consult date: 12/01/19 NHL Requesting physician: David Skinner - Chief Complaint Leg pain - History of Present Illness Sahra is a 19 year old female who was first seen back in June 2019 when she presented to [facility] at the recommendation of her repair specialist. At that time her repair specialist had found a palpable left medial supraclavicular node and was advised to be seen for further work-up. CT chest/abdomen/pelvis revealed a large mediastinal mass in addition to peritrachael adenopathy. She subsequently presented to [facility] where she underwent an excisional lymph node biopsy on 06/29/19. results revealing Hodgkins Lymphoma and was started on treatment for ABVD the week of 07/11/19. She received two doses and a PET scan revealed worsening disease therefore she was changed to [facility] She presents to [facility] 11/30/19 for complaints of bilater lower extremities, renuka th knees and ankles. She utilizes oxycodone at home for pain, without relief. She was recently discharged from [facility] on Thursday. [facility] and she received her last treatment on Thursday this week with neulasta. Her WBC are increased secondary to growth factor and likely the factor of bone pain. Her mother is at bedside during evaluation. Patient is in no acute distress. She does have RUE and BLE edema. I spoke with the pediatric hematology/oncology Fellow at [facility] who cares for her. He stated she did have a recent picc associated DVT in RUE and was treated with eliquis although stopped secondary to platelet count less than 50K. Her baseline echo revealed an EF 65%, her most recent completed at [facility] revealed increased EF 76%. Dr. Bro did state he reviewed this with [facility] cardiology and they are just monitoring at this time. In the interim will doppler BLE and RUE. Her pain is not controlled on Diludid and oxycodone. She does get recurrent anal fissures and mucocitis with each chemotherapy but at this time that is controlled. A one time dose morphine given and the pain subsided Review of Systems A 14 point review of systems assessed and completed and all negative except HPI Past Medical History Past Medical History: Cancer, Deep Vein Thrombosis (DVT) Additional Past Medical History / Comment(s): HODGKIN LYMPHOMA DX Jun 2019 Last chemo was November 21. DVT in arm. History of Any Multi-Drug Resistant Organisms: None Reported Past Surgical History: Tubal Ligation Additional Past Surgical History / Comment(s): oral surgery. RIGHT TUBAL LIGATION. Past Anesthesia/Blood Transfusion Reactions: No Reported Reaction Past Psychological History: No Psychological Hx Reported Smoking Status: Never smoker Past Alcohol Use History: None Reported Past Drug Use History: None Reported - Past Family History Mother Family Medical History: No Reported History Father Family Medical History: Hypertension Medications and Allergies Home Medications Medication Instructions Recorded Confirmed Type Docusate [Colace] 100 mg PO BID 11/30/19 11/30/19 History Famotidine [Pepcid] 20 mg PO BID 11/30/19 11/30/19 History Norethindrone 5mg 5 - 10 mg PO DIRECTED 11/30/19 11/30/19 History oxyCODONE HCL [OxyIR] 5 mg PO Q2H PRN 11/30/19 11/30/19 History oxyCODONE HCL [oxyCODONE HCL (IR)] 10 mg PO Q6H PRN 11/30/19 11/30/19 History Cetirizine HCl [Zyrtec] 10 mg PO DAILY 12/01/19 12/01/19 History Polyethylene Glycol 3350 [Miralax] 17 gm PO DAILY 12/01/19 12/01/19 History Allergies Allergy/AdvReac Type Severity Reaction Status Date / Time No Known Allergies Allergy Verified 11/30/19 19:54 Physical Exam Vitals: Vital Signs Temp Pulse Pulse Resp BP BP Pulse Ox 12/01/19 04:53 98.2 F 95 18 113/75 97 11/30/19 21:53 98.9 F 98 18 122/71 99 11/30/19 21:10 102 H 18 117/67 99 11/30/19 20:39 103 H 18 120/64 97 11/30/19 19:50 99.0 F 104 H 18 120/82 98 11/30/19 18:39 98.4 F 134 H 18 116/83 100 Intake and Output 11/30/19 12/01/19 12/01/19 22:59 06:59 14:59 Intake Total 240 Balance 240 Intake: Oral 240 Other: Voiding Method Toilet # Voids 1 Weight 107 kg Gen: Alopecia from treatment, NAD, Alert and oriented Head NCAT Neck: Supple O/P no thrush Lungs: CTA bilateral Heart: Tachy Abdomen: Soft Non distended Ext: RUE Swelling and BLE edema Mood Calm Results CBC & Chem 7: 12/01/19 08:42 11/30/19 19:35 Labs: Abnormal Lab Results - Last 24 Hours (Table) 11/30/19 11/30/19 12/01/19 Range/Units 19:35 19:35 02:12 WBC 53.6 H* 59.7 H* (3.8-10.6) k/uL RBC 2.88 L 2.76 L (3.80-5.40) m/uL Hgb 8.5 L D 8.0 L (11.4-16.0) gm/dL Hct 25.1 L 24.3 L (34.0-46.0) % RDW 16.0 H 15.9 H (11.5-15.5) % Plt Count 53 L 52 L (150-450) k/uL Blast Cells % 2 H* % Neutrophils # (Manual) 38.00 H (1.3-7.7) k/uL Monocytes # (Manual) 3.75 H (0-1.0) k/uL Metamyelocytes # (Man) 5.36 H (0) k/uL Myelocytes # (Manual) 5.36 H (0) k/uL Blast Cells # (Man) 1.07 H (0) k/uL Nucleated RBCs 2 H (0-0) /100 WBC Carbon Dioxide 31 H (22-30) mmol/L BUN 23 H (7-17) mg/dL Glucose 111 H (74-99) mg/dL AST 40 H (14-36) U/L Alkaline Phosphatase 185 H (38-126) U/L Creatine Kinase 21 L (30-135) U/L Total Protein 5.9 L (6.3-8.2) g/dL 12/01/19 Range/Units 08:42 WBC 54.4 H* (3.8-10.6) k/uL RBC 2.81 L (3.80-5.40) m/uL Hgb 8.2 L (11.4-16.0) gm/dL Hct 24.9 L (34.0-46.0) % RDW 16.1 H (11.5-15.5) % Plt Count 53 L (150-450) k/uL Blast Cells % % Neutrophils # (Manual) (1.3-7.7) k/uL Monocytes # (Manual) (0-1.0) k/uL Metamyelocytes # (Man) (0) k/uL Myelocytes # (Manual) (0) k/uL Blast Cells # (Man) (0) k/uL Nucleated RBCs (0-0) /100 WBC Carbon Dioxide (22-30) mmol/L BUN (7-17) mg/dL Glucose (74-99) mg/dL AST (14-36) U/L Alkaline Phosphatase (38-126) U/L Creatine Kinase (30-135) U/L Total Protein (6.3-8.2) g/dL Assessment and Plan (1) Hodgkin lymphoma Current Visit: No Status: Acute Code(s): C81.90 - HODGKIN LYMPHOMA, UNSPECIFIED, UNSPECIFIED SITE SNOMED Code(s): 680912948 (2) Neoplasm related pain Current Visit: Yes Status: Acute Code(s): G89.3 - NEOPLASM RELATED PAIN (ACUTE) (CHRONIC) SNOMED Code(s): 36896508837846 (3) Leg pain Current Visit: Yes Status: Acute Code(s): M79.606 - PAIN IN LEG, UNSPECIFIED SNOMED Code(s): 62261627 (4) Thrombocytopenia Current Visit: Yes Status: Acute Priority: Medium Code(s): D69.6 - THROMBOCYTOPENIA, UNSPECIFIED SNOMED Code(s): 865330574 (5) Anemia Current Visit: No Status: Acute Code(s): D64.9 - ANEMIA, UNSPECIFIED SNOMED Code(s): 061624505 (6) Leukocytosis Current Visit: No Status: Acute Code(s): D72.829 - ELEVATED WHITE BLOOD CELL COUNT, UNSPECIFIED SNOMED Code(s): 649295122 Plan: Assessment and Recommendations: Hodgkins Lymphoma: - Status post last treatment Thursday11/22/19 through [facility] - Spoke to Dr. Bro from her oncology team at [facility] - Planning for Radiation to mediastinal mass starting in December BLE Pain and Edema: - Pain likely secondary to growth factor - Will doppler to ensure no other etiology such as DVT in hypercoagulable patient (lymphoma and on Lupron and hx: RUE picc associated DVT) - Morphine provides better management of pain instead of dilaudid - Continue oxy - Continue Bowel regimen senna s and miralax - Flexeril and claritin Leukocytosis: - Likely secondary to growth factor - No s/s of infection noted - Urinalysis and culture ordered Normocytic Anemia: - Secondary to chemotherapy - Also may be associated with iron deficiency component, currently on menses - Will recheck CBC and Iron studies in am, patient and mother refused further bloodwork today Thrombocytopenia: - 52K today - Menses is not heavy per patient, no other bleeding - Will hold AC therapy if less than 50K Hx: DVT Right upper ext - Picc line associated treated with eliquis and stopped per [facility] secondary to thrombocytopenia and repeat doppler two weeks ago negative according to Dr. Bro - Repeat Doppler RUE Greater than 30 minute counseling and cordinating care. All patient and mothers questions answered and update provided to Oncology team at [facility]
[2019-12-01] MEDS ORDERED: HYDROmorphone 2 MG/ML 1 ML SYRINGE IVP PRN (12:00)
[2019-12-01] MEDS: FAMOTIDINE 20 MG TAB PO SCH ×2 (12:05→21:28)
[2019-12-01] MEDS ORDERED: CYCLOBENZAPRINE 10 MG TAB PO STA (13:01)
[2019-12-01] MEDS: LORATADINE 10 MG TAB PO SCH (13:10)
[2019-12-01] MEDS: POLYETHYLENE GLYCOL 3350 17 GM POWD.PACK PO SCH (13:10)
[2019-12-01] MEDS ORDERED: MORPHINE SULFATE 4 MG/ML SYRINGE IVP STA (13:23)
[2019-12-01] MEDS ORDERED: MORPHINE SULFATE 4 MG/ML SYRINGE IVP PRN (14:58)
[2019-12-01] MEDS: CYCLOBENZAPRINE 5 MG TAB PO SCH ×2 (17:44→21:28)
--- NOTE | 2019-12-01 20:02 | P.HPIM ---
History of Present Illness H&P Date: 12/01/19 Chief Complaint: Pain in the knees and ankles History of presenting complaint: This is a very pleasant 19-year-old patient who follows up with Dr. Parekh. Patient is accompanied by her mother in the room. Patient was diagnosed with non-Hodgkin's lymphoma in June 2019. She is followed by her oncologist at [facility]. She has been getting chemotherapy for the same. Initially had a treatment with ABVD. She was then switched over toBeacopp has did not respond to the former.. Has received 4 cycles. Patient was recently chemotherapy on November 21. Subsequently from November 23 through November 27 she was at [facility] for rectal mucositis. Also annual fissure. She was treated with a topical cream and local analgesics. Symptoms improved. Often time patient gets arthralgia of the mucositis. Now patient presents to us with increasing bone pain for last 3 days especially in the knees ankle. There is no fever no chills. A little mucositis symptoms are controlled. Appetite has been fair. No nausea vomiting. No fever and chills. Patient also recently underwent right upper extremity DVT through a PICC line was treated with eliquis in because of low platelets this was discontinued. She was using oxycodone at home which was not helping her pain. Patient was started on Dilaudid. With some relief Review of systems: GEN.: Tired EYES: None HEENT: Loss of scalp hair NECK: None RESPIRATORY: None CARDIOVASCULAR: None GASTROINTESTINAL: Rectal mucositis symptoms better GENITOURINARY: None MUSCULOSKELETAL: As above LYMPHATICS: None HEMATOLOGICAL: None PSYCHIATRY: None NEUROLOGICAL: None Past medical history to include: Hodgkin's lymphoma, DVT in the ER Social history: Does not smoke or drink alcohol. Lives with her parents Family history: Reviewed, noncontributory to presentation Physical examination: VITAL SIGNS: 98.4, 104, 18, 120/82, 98% on room air GENERAL: [BMI 34.8, laying in bed not in distress. EYES: Pupils equal. Conjunctiva normal. HEENT: External appearance of nose and ears normal, oral cavity grossly normal. Loss of scalp hair NECK: JVD not raised; masses not palpable. HEART: First and second heart sounds are normal; no edema. LUNGS: Respiratory rate normal; clear to auscultation. ABDOMEN: Soft, nontender, liver spleen not palpable, no masses palpable. Stria present PSYCH: Alert and oriented x3; mood and affect normal. NEUROLOGICAL: Cranial nerves grossly intact; no facial asymmetry, power and sensation grossly intact. 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 Patient is currently getting a lot of 1 mg every 3 hours. We will increase the dose to 1.5 mg Dilaudid every 3 hours. If that does not help we can switch her over to a pain pump or try morphine. Also we use ice packs and heating pad also told the patient to some passive movement to help with muscles. Also set up in a chair. Oncology was consulted. Past Medical History Past Medical History: Cancer, Deep Vein Thrombosis (DVT) Additional Past Medical History / Comment(s): HODGKIN LYMPHOMA DX Jun 2019 Last chemo was November 21. DVT in arm. History of Any Multi-Drug Resistant Organisms: None Reported Past Surgical History: Tubal Ligation Additional Past Surgical History / Comment(s): oral surgery. RIGHT TUBAL LIGATION. Past Anesthesia/Blood Transfusion Reactions: No Reported Reaction Past Psychological History: No Psychological Hx Reported Smoking Status: Never smoker Past Alcohol Use History: None Reported Past Drug Use History: None Reported - Past Family History Mother Family Medical History: No Reported History Father Family Medical History: Hypertension Medications and Allergies Home Medications Medication Instructions Recorded Confirmed Type Docusate [Colace] 100 mg PO BID 11/30/19 11/30/19 History Famotidine [Pepcid] 20 mg PO BID 11/30/19 11/30/19 History Norethindrone 5mg 5 - 10 mg PO DIRECTED 11/30/19 11/30/19 History oxyCODONE HCL [OxyIR] 5 mg PO Q2H PRN 11/30/19 11/30/19 History oxyCODONE HCL [oxyCODONE HCL (IR)] 10 mg PO Q6H PRN 11/30/19 11/30/19 History Cetirizine HCl [Zyrtec] 10 mg PO DAILY 12/01/19 12/01/19 History Polyethylene Glycol 3350 [Miralax] 17 gm PO DAILY 12/01/19 12/01/19 History Allergies Allergy/AdvReac Type Severity Reaction Status Date / Time No Known Allergies Allergy Verified 11/30/19 19:54 Physical Exam Vitals: Vital Signs Temp Pulse Pulse Resp BP BP Pulse Ox 12/01/19 04:53 98.2 F 95 18 113/75 97 11/30/19 21:53 98.9 F 98 18 122/71 99 11/30/19 21:10 102 H 18 117/67 99 11/30/19 20:39 103 H 18 120/64 97 11/30/19 19:50 99.0 F 104 H 18 120/82 98 11/30/19 18:39 98.4 F 134 H 18 116/83 100 Intake and Output 11/30/19 12/01/19 12/01/19 22:59 06:59 14:59 Intake Total 240 Balance 240 Intake: Oral 240 Other: Voiding Method Toilet # Voids 1 Weight 107 kg Results CBC & Chem 7: 12/01/19 08:42 11/30/19 19:35 Labs: Abnormal Lab Results - Last 24 Hours (Table) 11/30/19 11/30/19 12/01/19 Range/Units 19:35 19:35 02:12 WBC 53.6 H* 59.7 H* (3.8-10.6) k/uL RBC 2.88 L 2.76 L (3.80-5.40) m/uL Hgb 8.5 L D 8.0 L (11.4-16.0) gm/dL Hct 25.1 L 24.3 L (34.0-46.0) % RDW 16.0 H 15.9 H (11.5-15.5) % Plt Count 53 L 52 L (150-450) k/uL Blast Cells % 2 H* % Neutrophils # (Manual) 38.00 H (1.3-7.7) k/uL Monocytes # (Manual) 3.75 H (0-1.0) k/uL Metamyelocytes # (Man) 5.36 H (0) k/uL Myelocytes # (Manual) 5.36 H (0) k/uL Blast Cells # (Man) 1.07 H (0) k/uL Nucleated RBCs 2 H (0-0) /100 WBC Carbon Dioxide 31 H (22-30) mmol/L BUN 23 H (7-17) mg/dL Glucose 111 H (74-99) mg/dL AST 40 H (14-36) U/L Alkaline Phosphatase 185 H (38-126) U/L Creatine Kinase 21 L (30-135) U/L Total Protein 5.9 L (6.3-8.2) g/dL // Range/Units 08:42 WBC 54.4 H* (3.8-10.6) k/uL RBC 2.81 L (3.80-5.40) m/uL Hgb 8.2 L (11.4-16.0) gm/dL Hct 24.9 L (34.0-46.0) % RDW 16.1 H (11.5-15.5) % Plt Count 53 L (150-450) k/uL Blast Cells % % Neutrophils # (Manual) (1.3-7.7) k/uL Monocytes # (Manual) (0-1.0) k/uL Metamyelocytes # (Man) (0) k/uL Myelocytes # (Manual) (0) k/uL Blast Cells # (Man) (0) k/uL Nucleated RBCs (0-0) /100 WBC Carbon Dioxide (22-30) mmol/L BUN (7-17) mg/dL Glucose (74-99) mg/dL AST (14-36) U/L Alkaline Phosphatase (38-126) U/L Creatine Kinase (30-135) U/L Total Protein (6.3-8.2) g/dL Thrombosis Risk Factor Assmnt - Choose All That Apply Any of the Below Risk Factors Present?: Yes Each Factor Represents 1 point: Obesity (BMI >25) Each Risk Factor Represents 2 Points: Malignancy Each Risk Factor Represents 3 Points: History of DVT/PE Other congenital or acquired thrombophilia - If yes, enter type in comment: No Thrombosis Risk Factor Assessment Total Risk Factor Score: 6 Thrombosis Risk Factor Assessment Level: High Risk
[2019-12-01] MEDS: SENNOSIDES-DOCUSATE SODIUM 1 EACH TAB PO SCH (21:28)
--- NOTE | 2019-12-01 21:49 | US ---
EXAMINATION TYPE: US venous doppler duplex UE RT DATE OF EXAM: 12/01/2019 COMPARISON: US 2020 RUEV CLINICAL HISTORY: swelling hx dvt. Swelling right arm. Hodgkin's lymphoma. Hx of DVT in right arm. Pa tient not taking blood thinners. SIDE PERFORMED: Right Arm RIGHT UPPER EXTREMITY FINDINGS: No evidence of DVT in veins imaged in right arm at this time by ultrasound. Slightly limited due to s welling. IMPRESSION: NEGATIVE FOR DVT, RIGHT UPPER EXTREMITY.
--- NOTE | 2019-12-01 21:51 | US ---
EXAMINATION TYPE: US venous doppler duplex LE DATE OF EXAM: 12/01/2019 8:51 PM COMPARISON: [facility] Ultrasound. CLINICAL HISTORY: swelling hx dvt. Swelling bilateral lower extremities x couple days. Hodgkin's lymp ioana. Hx of DVT. Patient does not take any blood thinners. SIDE PERFORMED: Bilateral TECHNIQUE: The lower extremity deep venous system is examined utilizing real time linear array sonog julissa with graded compression, doppler sonography and color-flow sonography. VESSELS IMAGED: External Iliac Vein (EIV) Common Femoral Vein Deep Femoral Vein Greater Saphenous Vein * Femoral Vein Popliteal Vein Small Saphenous Vein * Proximal Calf Veins (* superficial vessels) RIGHT LOWER EXTREMITY FINDINGS: Patient could not tolerate compression of right distal femoral vein. Color flow seen. No evidence of DVT in veins imaged at this time from prox calf veins to EIV. LEFT LOWER EXTREMITY FINDINGS: No evidence of DVT at this time from prox calf veins to EIV. IMPRESSION: NEGATIVE FOR DVT, BILATERAL LOWER EXTREMITIES.
[2019-12-02 06:38] LABS: Anisocytosis Slight; HCT 23.6 % (34.0-46.0); MCHC 33.8 g/dL (31.0-37.0); MCV 88.6 fL (80.0-100.0); Mean Platelet Volume 8.7; Platelet Count 66 k/uL (150-450); RBC 2.67 m/uL (3.80-5.40); RDW 17.1 % (11.5-15.5)
[2019-12-02 06:44] LABS: ALT 22 U/L (4-34); AST 29 U/L (14-36); African American GFR (CKD) >90 (>60 ml/min/1.73 sqM); Albumin 3.2 g/dL (3.5-5.0); Alkaline Phosphatase 161 U/L (38-126); Anion Gap 3 mmol/L; Blood Urea Nitrogen 17 mg/dL (7-17); Calcium 8.4 mg/dL (8.4-10.2); Carbon Dioxide 30 mmol/L (22-30); Chloride 100 mmol/L (98-107); Glucose 98 mg/dL (74-99); Non-African American GFR(CKD) >90 (>60 ml/min/1.73 sqM); Potassium 4.2 mmol/L (3.5-5.1); Sodium 133 mmol/L (137-145); Total Bilirubin 0.4 mg/dL (0.2-1.3); Total Protein 5.4 g/dL (6.3-8.2)
[2019-12-02 07:16] LABS: Band Neutrophils % 8 %; Metamyelocytes % 8 %; Myelocytes % 9 %; Neutrophils % (M) 66 %; Nucleated Red Blood Cells 2 /100 WBC (0-0); Total Cells Counted 200
[2019-12-02 07:17] LABS: Lymphocytes # (M) 1.45 k/uL (1.0-4.8); Metamyelocytes # (M) 3.87 k/uL (0); Monocytes # (M) 3.87 k/uL (0-1.0); Myelocytes # (M) 4.36 k/uL (0); Polychromasia Present; WBC 48.4 k/uL (3.8-10.6)
[2019-12-02] MEDS: SENNOSIDES-DOCUSATE SODIUM 1 EACH TAB PO SCH (07:51)
[2019-12-02] MEDS: FAMOTIDINE 20 MG TAB PO SCH (07:51)
[2019-12-02] MEDS: LORATADINE 10 MG TAB PO SCH (07:51)
[2019-12-02] MEDS: CYCLOBENZAPRINE 5 MG TAB PO SCH ×2 (07:51→16:00)
[2019-12-02] MEDS: POLYETHYLENE GLYCOL 3350 17 GM POWD.PACK PO SCH (07:52)
[2019-12-02 11:08] LABS: % Iron Saturation 19.29 (12.00-45.00); Iron 49 ug/dL (50-170); Total Iron Binding Capacity 254 ug/dL (228-460)
[2019-12-02 11:18] LABS: Folate, Serum 7.2 ng/mL
[2019-12-02 11:51] VITALS: BP 105/67; PULSE 113; RESP 16; TEMP 98.4
[2019-12-02 12:46] LABS: Ferritin 2216.1 ng/mL (10.0-291.0)
--- NOTE | 2019-12-02 15:44 | P.PN ---
Subjective Progress Note Date: 12/02/19 Principal diagnosis: Hodgkins Lymphoma, BLE pain She is feeling better with the combination of flexeril and prn oxycodone. Father at bedside Objective - Vital Signs Vital signs: Vital Signs Temp 98.4 F 12/02/19 11:16 Pulse 113 H 12/02/19 11:16 Resp 16 12/02/19 11:16 BP 105/67 12/02/19 11:16 Pulse Ox 95 12/02/19 11:16 Intake & Output 12/01/19 12/02/19 12/02/19 18:59 06:59 18:59 Intake Total 160 1100 1580 Balance 160 1100 1580 Intake: Intake, IV Titration 160 Amount Sodium Chloride 0.9% 1, 160 000 ml @ 999 mls/hr IV . Q1H1M ONE Rx#:[id number] Oral 1100 1580 Other: Voiding Method Toilet Toilet # Voids 3 1 4 - Exam Gen: Alopecia from treatment, NAD, Alert and oriented Head NCAT Neck: Supple O/P no thrush Lungs: CTA bilateral Heart: Tachy Abdomen: Soft Non distended Ext: RUE Swelling and BLE edema Mood Calm - Labs CBC & Chem 7: 12/02/19 05:58 12/02/19 05:58 Labs: Abnormal Lab Results - Last 24 Hours (Table) 12/02/19 12/02/19 Range/Units 05:58 05:58 WBC 48.4 H (3.8-10.6) k/uL RBC 2.67 L (3.80-5.40) m/uL Hgb 8.0 L (11.4-16.0) gm/dL Hct 23.6 L (34.0-46.0) % RDW 17.1 H (11.5-15.5) % Plt Count 66 L (150-450) k/uL Neutrophils # (Manual) 35.80 H (1.3-7.7) k/uL Monocytes # (Manual) 3.87 H (0-1.0) k/uL Metamyelocytes # (Man) 3.87 H (0) k/uL Myelocytes # (Manual) 4.36 H (0) k/uL Nucleated RBCs 2 H (0-0) /100 WBC Sodium 133 L (137-145) mmol/L Iron 49 L (50-170) ug/dL Ferritin 2216.1 H (10.0-291.0) ng/mL Alkaline Phosphatase 161 H (38-126) U/L Total Protein 5.4 L (6.3-8.2) g/dL Albumin 3.2 L (3.5-5.0) g/dL Vitamin B12 1944.0 H (200.0-944.0) pg/mL Assessment and Plan (1) Hodgkin lymphoma Current Visit: No Status: Acute Code(s): C81.90 - HODGKIN LYMPHOMA, UNSPECIFIED, UNSPECIFIED SITE SNOMED Code(s): 022347087 (2) Neoplasm related pain Current Visit: Yes Status: Acute Code(s): G89.3 - NEOPLASM RELATED PAIN (ACUTE) (CHRONIC) SNOMED Code(s): 66590792646276 (3) Leg pain Current Visit: Yes Status: Acute Code(s): M79.606 - PAIN IN LEG, UNSPECIFIED SNOMED Code(s): 70945255 (4) Thrombocytopenia Current Visit: Yes Status: Acute Priority: Medium Code(s): D69.6 - THROMBOCYTOPENIA, UNSPECIFIED SNOMED Code(s): 128111417 (5) Anemia Current Visit: No Status: Acute Code(s): D64.9 - ANEMIA, UNSPECIFIED SNOMED Code(s): 523236671 (6) Leukocytosis Current Visit: No Status: Acute Code(s): D72.829 - ELEVATED WHITE BLOOD CELL COUNT, UNSPECIFIED SNOMED Code(s): 770611844 Plan: Assessment and Recommendations: Hodgkins Lymphoma: - Status post last treatment Thursday11/22/19 through [facility] - Spoke to Dr. Bro from her oncology team at [facility] - Planning for Radiation to mediastinal mass starting in December BLE Pain and Edema: - Pain likely secondary to growth factor - Doppler RUE and BLE neg - Morphine provides better management of pain instead of dilaudid - Continue oxy - Continue Bowel regimen senna s and miralax - Flexeril and claritin Leukocytosis: - Likely secondary to growth factor - No s/s of infection noted - Urinalysis and culture ordered Normocytic Anemia: - Secondary to chemotherapy - Also may be associated with iron deficiency component, currently on menses - Will recheck CBC and Iron studies in am, patient and mother refused further bloodwork today Thrombocytopenia: - 44K today - Menses is not heavy per patient, no other bleeding - Will hold AC therapy if less than 50K Hx: DVT Right upper ext - Picc line associated treated with eliquis and stopped per [facility] secondary to thrombocytopenia and repeat doppler two weeks ago negative according to Dr. Bro - Repeat Doppler RUE and BLE negative for thrombus Plan: - Ok for discharge from oncology standpoint - Follow-up with Primary oncologist Dr. Isbell and Dr. Bro (please cc) - Continue Claritin BID for three more days, Continue Flexeril BID until pain in legs improves, Increase fiber to assist in prevention of anal inflammation and recurrent fissure, aquaphor, hydrocortisone, and mix with lidocaine base burn gel (OTC dose) and wash with gentle moisturizing baby wash cetaphil (provided ) - Recommended repeat Echocardiogram per primary outpatient team for increased E F and BLE edema.
--- NOTE | 2019-12-02 17:43 | P.DS ---
Providers Date of admission: 12/01/19 15:45 Expected date of discharge: 12/02/19 Attending physician: Corky Morejon Consults: 11/30/19 20:39 Consult Physician Routine Consulting Provider: Steve Kaminski Consult Reason/Comments: Leg pain; Stage IV Hodgkin's Lymphoma Do you want consulting provider notified?: Yes Primary care physician: Lawrence Parekh [facility] Course: Chief Complaint: Pain in the knees and ankles History of presenting complaint: This is a very pleasant 19-year-old patient who follows up with Dr. Parekh. Patient is accompanied by her mother in the room. Patient was diagnosed with non-Hodgkin's lymphoma in June 2019. She is followed by her oncologist at [facility]. She has been getting chemotherapy for the same. Initially had a treatment with ABVD. She was then switched over toBeacopp has did not respond to the former.. Has received 4 cycles. Patient was recently chemotherapy on November 21. Subsequently from November 23 through November 27 she was at [facility] for rectal mucositis. Also annual fissure. She was treated with a topical cream and local analgesics. Symptoms improved. Often time patient gets arthralgia of the mucositis. Now patient presents to us with increasing bone pain for last 3 days especially in the knees ankle. There is no fever no chills. A little mucositis symptoms are controlled. Appetite has been fair. No nausea vomiting. No fever and chills. Patient also recently underwent right upper extremity DVT through a PICC line was treated with eliquis in because of low platelets this was discontinued. She was using oxycodone at home which was not helping her pain. Patient was started on Dilaudid. With some relief Admitted with-bone pain. Uncontrolled with outpatient oral medications. Initially tried on IV Dilaudid then switched to IV morphine to which she responded well. Today-doing well. Pain control. Also using Flexeril. Seen by oncology team. Discussed with patient. Okay to go home. Patient will follow up with her oncologist. Consultation: Dr. Kaminski from oncology Physical examination: VITAL SIGNS: 98.4, 113, 16, 105/67, 95% on room air GENERAL: [BMI 34.8, laying in bed, comfortable EYES: Pupils equal. Conjunctiva normal. HEENT: External appearance of nose and ears normal, oral cavity grossly normal. Loss of scalp hair NECK: JVD not raised; masses not palpable. HEART: First and second heart sounds are normal; no edema. LUNGS: Respiratory rate normal; clear to auscultation. ABDOMEN: Soft, nontender, liver spleen not palpable, no masses palpable. Stria present PSYCH: Alert and oriented x3; mood and affect normal. 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, eliquis discontinued because of thrombocytopenia -Alopecia due to chemotherapy -Obesity BMI 34.8 -Bicytopenia secondary to chemotherapy -Leukocytosis due to colony-GSF that she receive following chemotherapy-coming down Disposition: Home Patient Condition at Discharge: Stable Plan - Discharge Summary Discharge Rx Participant: No New Discharge Prescriptions: New Cyclobenzaprine [Flexeril] 5 mg PO TID PRN #30 tab PRN Reason: Spasms Sennosides-Docusate Sodium [Senokot-S] 2 each PO HS #60 tab Continue oxyCODONE HCL [oxyCODONE HCL (IR)] 10 mg PO Q6H PRN PRN Reason: Pain oxyCODONE HCL [OxyIR] 5 mg PO Q2H PRN PRN Reason: Pain Norethindrone 5mg 5 - 10 mg PO DIRECTED Famotidine [Pepcid] 20 mg PO BID Polyethylene Glycol 3350 [Miralax] 17 gm PO DAILY Cetirizine HCl [Zyrtec] 10 mg PO DAILY Discontinued Docusate [Colace] 100 mg PO BID Discharge Medication List Famotidine [Pepcid] 20 mg PO BID 11/30/19 [History] Norethindrone 5mg 5 - 10 mg PO DIRECTED 11/30/19 [History] oxyCODONE HCL [OxyIR] 5 mg PO Q2H PRN 11/30/19 [History] oxyCODONE HCL [oxyCODONE HCL (IR)] 10 mg PO Q6H PRN 11/30/19 [History] Cetirizine HCl [Zyrtec] 10 mg PO DAILY 12/01/19 [History] Polyethylene Glycol 3350 [Miralax] 17 gm PO DAILY 12/01/19 [History] Cyclobenzaprine [Flexeril] 5 mg PO TID PRN #30 tab 12/02/19 [Rx] Sennosides-Docusate Sodium [Senokot-S] 2 each PO HS #60 tab 12/02/19 [Rx] Follow up Appointment(s)/Referral(s): oncologist, [Other] - 1 Week Lawrence Parekh MD [Primary Care Provider] - 1-2 days (call on Thursday to schedule follow-up appt, office is currently closed) Patient Instructions/Handouts: Cyclobenzaprine (By mouth), Laxative, Stimulant Combination (By mouth), Hodgkin Lymphoma (DC), Leukocytosis (DC), Leg Pain (ED) Discharge Disposition: HOME SELF-CARE
--- NOTE | 2019-12-06 11:59 | CDI ---
Documentation Clarification Form Date: 12/06/19 From: Meghann Sigala Phone: If you have a question about this query, please contact Cathy Rodriguez, Workforce Planner at [phone] between 8am and 5pm. Admit Date: 12/01/19 Discharge Date: 12/02/19 Patient Name: JANET TOLENTINO Visit Number: [id number] ATTENTION: The Clinical Documentation Specialists (CDI) and [facility] Coding Staff appreciate your assistance in clarifying documentation. Please respond to the clarification below the line at the bottom and electronically sign. The CDI & [facility] Coding staff will review the response and follow-up if needed. Please note: Queries are made part of the Legal Health Record. If you have any questions, please contact the author of this message via ITS. Dear Dr. Corky Morejon, Knee and ankle bone pain is documented in the H&P & DS. Patient history/risk factors: Hodgkin lymphoma s/p chemotherapy and Neulasta. Rectal mucositis due to chemo, anal fissures Clinical Indicators: Radiology: Labs: WBC-53.6, RBC-2.88, HGB-8.5, HCT-25.1, PLT-53.0, BLAST cells-2, Neutrophil-38.00 Vital Signs: T-98.4, P-134, R-18, BP-116/83, O2-100 Treatment: Continue Oxy, Morphine provides better management of pain insteas of Dilaudid Oncolgy consult: Krys and she received her last treatment on Thursday this week with neulasta. Her WBC are increased secondary to growth factor and likely the factor of bone pain. In your professional opinion, can you please clarify the following in your progress notes and discharge summary, if known? Bone pain secondary to chemotherapy Bone pain secondary to Neulasta Bone pain secondary to Hodgkins lymphoma Other, please specify Unable to determine This is addressed in the discharge summary- MTDD
== END 2019-12-02 17:18 | disposition home or self-care (01) | DRG 565 ==
LOC: EC 18:33 → 5NMEDONC 20:40 → OBSVTOIN 12-01 15:45
PROVIDERS: ADMIT Hospitalist; ATTEND Hospitalist
DX: M89.8X6 Other specified disorders of bone, lower leg (principal); C81.90 Hodgkin lymphoma, unspecified, unspecified site; K92.81 Gastrointestinal mucositis (ulcerative); D69.6 Thrombocytopenia, unspecified; M89.8X7 Other specified disorders of bone, ankle and foot; T45.8X5A Adverse effect of other primarily systemic and hematological agents, initial encounter; T45.1X5A Adverse effect of antineoplastic and immunosuppressive drugs, initial encounter; D64.81 Anemia due to antineoplastic chemotherapy; D72.829 Elevated white blood cell count, unspecified; K60.2 Anal fissure, unspecified; Z11.59 Encounter for screening for other viral diseases; L65.9 Nonscarring hair loss, unspecified; E66.9 Obesity, unspecified; Z68.34 Body mass index [BMI] 34.0-34.9, adult; Z79.891 Long term (current) use of opiate analgesic; Z79.899 Other long term (current) drug therapy; Z86.718 Personal history of other venous thrombosis and embolism; Z98.51 Tubal ligation status; Z82.49 Family history of ischemic heart disease and other diseases of the circulatory system
CPT/HCPCS: 36415; 80053; 82550; 82607; 82728; 82746; 83540; 83550; 85025; 85027; 87635; 93970; 96361; 96374; 96375; 96376; 99285

== ENCOUNTER 2020-09-12 19:43 | Emergency (ER) | payer BC ==
--- NOTE | 2020-09-12 19:56 | ED ---
Extremity Problem HPI - General Source: patient Mode of arrival: ambulatory Limitations: no limitations <Chris Moore - Last Filed: 09/13/20 01:02> <Anika Stanley - Last Filed: 09/14/20 13:33> - General Chief complaint: Extremity Problem,Nontraumatic Stated complaint: Right arm pain Time Seen by Provider: 09/12/20 19:51 - History of Present Illness Initial comments: 20-year-old male presents to emergency department with a chief complaint of right arm pain. Patient reports the pain started about 3-4 days ago in the proximal aspect of her right arm. Patient reports the pain is sharp 7/10 and constant today. Otherwise it was intermittent. Denies any alleviating aggravated factors. Denies any swelling or erythema. Patient is in remission from Hodgkin's lymphoma and had a PICC line inserted in the particular region where she is having the symptoms. The PICC line was inserted for over a year and was removed 10 months ago. Mother patient her concern for possible blood clot. Patient denies any overlying skin changes. She denies any chest pain or shortness of breath. (Chris Moore) - Related Data Home Medications Medication Instructions Recorded Confirmed Famotidine [Pepcid] 20 mg PO BID 11/30/19 11/30/19 Norethindrone 5mg 5 - 10 mg PO DIRECTED 11/30/19 11/30/19 oxyCODONE HCL [OxyIR] 5 mg PO Q2H PRN 11/30/19 11/30/19 oxyCODONE HCL [oxyCODONE HCL (IR)] 10 mg PO Q6H PRN 11/30/19 11/30/19 Cetirizine HCl [Zyrtec] 10 mg PO DAILY 12/01/19 12/01/19 polyethylene glycoL 3350 [Miralax] 17 gm PO DAILY 12/01/19 12/01/19 Previous Rx's Medication Instructions Recorded Cyclobenzaprine [Flexeril] 5 mg PO TID PRN #30 tab 12/02/19 Sennosides-Docusate Sodium 2 each PO HS #60 tab 12/02/19 [Senokot-S] Allergies Allergy/AdvReac Type Severity Reaction Status Date / Time No Known Allergies Allergy Verified 09/12/20 19:49 Review of Systems ROS Other: All systems not noted in ROS Statement are negative. <Chris Moore - Last Filed: 09/13/20 01:02> ROS Other: All systems not noted in ROS Statement are negative. <Anika Stanley Jyoti - Last Filed: 09/14/20 13:33> ROS Statement: Those systems with pertinent positive or pertinent negative responses have been documented in the HPI. Past Medical History Past Medical History: Cancer, Deep Vein Thrombosis (DVT) Additional Past Medical History / Comment(s): HODGKIN LYMPHOMA DX Jun 2019 Last chemo was November 21. DVT in arm. History of Any Multi-Drug Resistant Organisms: None Reported Past Surgical History: Tubal Ligation Additional Past Surgical History / Comment(s): oral surgery. RIGHT TUBAL LIGATION. Past Anesthesia/Blood Transfusion Reactions: No Reported Reaction Past Psychological History: No Psychological Hx Reported Smoking Status: Never smoker Past Alcohol Use History: None Reported Past Drug Use History: None Reported - Past Family History Mother Family Medical History: No Reported History Father Family Medical History: Hypertension <Chris Moore - Last Filed: 09/13/20 01:02> General Exam Limitations: no limitations General appearance: alert, in no apparent distress Head exam: Present: atraumatic, normocephalic, normal inspection Eye exam: Present: normal appearance, PERRL, EOMI Pupils: Present: normal accommodation ENT exam: Present: normal exam, normal oropharynx, mucous membranes moist, TM's normal bilaterally, normal external ear exam Neck exam: Present: normal inspection, full ROM. Absent: tenderness Respiratory exam: Present: normal lung sounds bilaterally. Absent: respiratory distress Cardiovascular Exam: Present: regular rate, normal rhythm, normal heart sounds Extremities exam: Present: normal inspection (Scarring noted where the PICC line was inserted. No signs of erythema or ecchymosis or swelling.), full ROM, tenderness (Mild tenderness over the medial aspect of her right proximal arm), normal capillary refill, other (Palpable ulnar and radial pulses bilateral.). Absent: pedal edema, joint swelling, calf tenderness Back exam: Present: normal inspection, full ROM Neurological exam: Present: alert, oriented X3 Psychiatric exam: Present: normal affect, normal mood Skin exam: Present: warm, dry, intact, normal color <Chris Moore - Last Filed: 09/13/20 01:02> Course Vital Signs 09/12/20 09/12/20 19:44 21:45 Temperature 98.7 F 98.1 F Pulse Rate 108 H 95 Respiratory 17 18 Rate Blood Pressure 127/87 112/59 O2 Sat by Pulse 99 96 Oximetry Medical Decision Making <TeresaChris - Last Filed: 09/13/20 01:02> <Anika Stanley - Last Filed: 09/14/20 13:33> - Medical Decision Making 20-year-old male presents to emergency Department with a chief complaint right arm pain. Physical examination is unremarkable. No focal deficits. Pain seems to be reproducible with palpation of the medial aspect of the proximal right arm. Patient is to have a PICC line in that location that was removed 10 months ago. Ultrasound Doppler reveals no signs of DVT. I suspect this is the residual pain from the PICC line. Patient advised to follow up with PCP. Return parameters discussed the patient was understanding and agreeable. Case discussed with (Chris Moore) I was available for consultation in the emergency department. The history and physical exam were done by the midlevel provider. I was consulted for this patients care. I reviewed the case with the midlevel provider and based on their presentation of the patient, I agree with the assessment, medical decision making and plan of care as documented. Chart was dictated using LAT[employer] dictation software. Attempts were made to correct any dictation errors however some typographical errors may persist. Patient was seen during a national state of emergency due to the Covid-19 pandemic. (Anika Stanley) Disposition Is patient prescribed a controlled substance at d/c from ED?: No Time of Disposition: 21:36 <Chris Moore - Last Filed: 09/13/20 01:02> <Anika Stanley - Last Filed: 09/14/20 13:33> Clinical Impression: Arm pain, right Disposition: HOME SELF-CARE Condition: Stable Instructions (If sedation given, give patient instructions): Arm Pain (ED) Additional Instructions: Please return to the Emergency Department if symptoms worsen or any other concerns. Referrals: Lawrence Parekh MD [Primary Care Provider] - 1-2 days
--- NOTE | 2020-09-12 21:27 | US ---
EXAMINATION TYPE: US venous doppler duplex UE RT DATE OF EXAM: 09/12/2020 COMPARISON: US CLINICAL HISTORY: r/o dvt . R/O DVT. Right arm pain x couple days. Hx DVT in right arm. Hx Hodgkin's Lymphoma DX June 2019. SIDE PERFORMED: Right Right Arm: No evidence of DVT in veins imaged at this time within the right arm. Ulnar veins do appea r to compress, but unable to show color flow most likely due to small size. IMPRESSION: No sign of deep vein thrombosis in the right arm.
[2020-09-12 21:47] VITALS: BP 112/59; PULSE 95; RESP 18; TEMP 98.1
== END 2020-09-12 21:46 | disposition home or self-care (01) ==
LOC: EC 19:43
DX: M79.601 Pain in right arm (principal); Z98.51 Tubal ligation status; Z86.718 Personal history of other venous thrombosis and embolism
CPT/HCPCS: 99283

== ENCOUNTER → 2020-10-10 | Outpatient (CLI) | payer BC | END | disposition home or self-care (01) | LOC: LABWHC1 15:03 | PROVIDERS: ATTEND Pediatrics | DX: Z20.822 Contact with and (suspected) exposure to COVID-19 (principal) | CPT/HCPCS: U0003; C9803; U0005 ==

== ENCOUNTER → 2021-07-24 | Outpatient (CLI) | payer BC ==
--- NOTE | 2021-07-24 16:12 | XR ---
EXAMINATION TYPE: XR chest 2V DATE OF EXAM: 07/24/2021 COMPARISON: 09/22/2019 TECHNIQUE: PA and lateral views submitted. HISTORY: Cough FINDINGS: Heart size normal. There is no pleural effusion or pneumothorax. No focal pneumonia. Slightly coarsen ed central interstitium. IMPRESSION: 1. Slightly coarsened central interstitium could related to reduced inspiration rather than bronchiti s or mild interstitial pneumonitis correlate clinically.
[2021-07-24 16:37] LABS: Basophils % (A) 0 %; Eosinophils # (A) 0.1 k/uL (0-0.7); Eosinophils % (A) 1 %; HCT 42.3 % (34.0-46.0); HGB 14.1 gm/dL (11.4-16.0); Lymphocytes # (A) 1.7 k/uL (1.0-4.8); Lymphocytes % (A) 28 %; MCH 31.1 pg (25.0-35.0); MCHC 33.2 g/dL (31.0-37.0); MCV 93.7 fL (80.0-100.0); Mean Platelet Volume 7.1; Monocytes # (A) 0.2 k/uL (0-1.0); Monocytes % (A) 4 %; Neutrophils # (A) 3.9 k/uL (1.3-7.7); Neutrophils % (A) 64 %; Platelet Count 320 k/uL (150-450); RBC 4.52 m/uL (3.80-5.40); RDW 12.9 % (11.5-15.5); WBC 6.2 k/uL (3.8-10.6)
[2021-07-24 16:49] LABS: ALT 14 U/L (4-34); AST 24 U/L (14-36); African American GFR (CKD) >90 (>60 ml/min/1.73 sqM); Albumin 4.1 g/dL (3.5-5.0); Albumin/Globulin Ratio 1.3; Alkaline Phosphatase 108 U/L (38-126); Anion Gap 8 mmol/L; Blood Urea Nitrogen 14 mg/dL (7-17); Calcium 9.3 mg/dL (8.4-10.2); Carbon Dioxide 26 mmol/L (22-30); Chloride 106 mmol/L (98-107); Globulin 3.1 g/dL; Glucose 81 mg/dL (74-99); Non-African American GFR(CKD) >90 (>60 ml/min/1.73 sqM); Potassium 4.8 mmol/L (3.5-5.1); Sodium 140 mmol/L (137-145); Total Bilirubin 0.8 mg/dL (0.2-1.3); Total Protein 7.2 g/dL (6.3-8.2)
[2021-07-24 17:37] LABS: Erythrocyte Sedimentation Rate 13 mm/hr (0-20)
== END | disposition home or self-care (01) ==
LOC: LABWHC1 15:35
PROVIDERS: ATTEND Pediatrics
DX: M54.2 Cervicalgia (principal); R61 Generalized hyperhidrosis
CPT/HCPCS: 36415; 71046; 80053; 85025; 85652

== ENCOUNTER → 2022-03-21 | Outpatient (CLI) | payer BC ==
[2022-03-21 18:21] LABS: HCT 41.1 % (37.2-46.3); HGB 13.4 g/dL (12.0-15.0); MCH 30.6 pg (27.0-32.0); MCHC 32.6 g/dL (32.0-37.0); MCV 93.8 fL (80.0-97.0); Mean Platelet Volume 10.2 fL (9.5-12.2); NRBC Per 100 WBC 0 /100 WBCS (0.0-0.0); Platelet Count 315 X 10*3/uL (140-440); RBC 4.38 X 10*6/uL (4.10-5.20); RDW 12.3 % (11.5-14.5); WBC 7.38 X 10*3/uL (4.50-10.00)
[2022-03-21 18:42] LABS: ALT 12 U/L (8-44); AST 24 U/L (13-35); African American GFR (CKD) 129.2 (60.0-200.0); Albumin 4.4 g/dL (3.8-4.9); Albumin/Globulin Ratio 1.78 (1.60-3.17); Alkaline Phosphatase 135 U/L (41-126); BUN/Creat Ratio 19.07 Ratio (12.00-20.00); Blood Urea Nitrogen 14.4 mg/dL (9.0-27.0); Calcium 9.3 mg/dL (8.7-10.3); Carbon Dioxide 26.2 mmol/L (20.0-27.5); Chloride 104 mmol/L (96-109); Chol/HDL Ratio 2.59 Ratio; Globulin 2.5 g/dL (1.6-3.3); Glucose 90 mg/dL (70-110); LDL Cholesterol,Calculated 95.7 mg/dL (0.0-131.0); Non-African American GFR(CKD) 111.5 (60.0-200.0); Potassium 4.8 mmol/L (3.5-5.5); Sodium 141 mmol/L (135-145); Total Protein 6.9 g/dL (6.2-8.2); VLDL Calculation 10.56 mg/dL (5.00-40.00)
== END | disposition home or self-care (01) ==
LOC: LABWHC1 10:21
PROVIDERS: ATTEND Pediatrics
DX: Z00.01 Encounter for general adult medical examination with abnormal findings (principal)
CPT/HCPCS: 36415; 80053; 80061; 83036; 84439; 84443; 85027

== ENCOUNTER → 2023-01-08 | Outpatient (CLI) | payer BC | END | disposition home or self-care (01) | LOC: LABWHC1 07:53 | PROVIDERS: ATTEND Nurse Practitioner | DX: C81.12 Nodular sclerosis Hodgkin lymphoma, intrathoracic lymph nodes (principal) | CPT/HCPCS: 36415; 85652 ==

== ENCOUNTER → 2023-03-27 | Outpatient (CLI) | payer BC ==
[2023-03-30 08:01] LABS: CMV DNA Qualitative Not detected (Not detected); CMV DNA, Quantitative <30 IU/mL (<30); LOG CMV Copies/mL <76 Copies/mL (<76); Log Cytomegalovirus <1.48 (<1.48)
[2023-03-30 16:32] LABS: EBV-EA (IgG) <0.2 AI; EBV-EBNA(IgG) >8.0; EBV-VCA (IgG) >8.0 AI; EBV-VCA (IgM) <0.2 AI
== END | disposition home or self-care (01) ==
LOC: LABWHC1 15:37
PROVIDERS: ATTEND Student in an Organized Health Care Education/Training Program
DX: R53.83 Other fatigue (principal)
CPT/HCPCS: 36415; 86663; 86664; 86665; 87497